=== PATIENT | female | born 1955 | race Caucasian/White ===

== ENCOUNTER → 2019-07-04 10:01 | Outpatient (CLI) | payer OTHER, SELFPAY ==
--- NOTE | ~2019-07-04 | CT_ITS ---
EXAMINATION: CT pelvis w con DATE: 07/04/2019 11:02 INDICATION: Pilonidal cyst without abscess. TECHNIQUE: High resolution computed tomography (CT) of the pelvis was performed with 100 mL Omnipaque -350 intravenous contrast. Additional sagittal and coronal reconstructions were performed. Automated exposure control and iterative reconstruction technique were employed. The dose-length product was 67 0.67 mGy-cm. COMPARISON: None FINDINGS: The visualized portions of the bowels are normal with no wall thickening or obstruction. The appendix is not visualized. No pericecal inflammatory change to suggest acute appendicitis. Bladder, uterus a nd bilateral adnexa are unremarkable. Visualized lower pole of the left kidney is unremarkable. There is calcified atherosclerosis of the aorta and bilateral iliac arteries. No free intraperitoneal gas or fluid. No pathologically enlarged abdominal or pelvic lymphadenopathy. No abnormal masses or fluid collections identified in the immediate vicinity sacrum or coccyx. Mild degenerative skeletal change s in the lumbar spine, bilateral hip and sacroiliac joints. IMPRESSION: 1. Unremarkable study with no pilonidal cyst or abnormal masses in the region of the sacrum or coccyx . Reviewed, dictated and finalized at location A. AND CROWN PRESSER IMPRESSION: 1. Unremarkable study with no pilonidal cyst or abnormal masses in the region o f the sacrum or coccyx.
[2019-07-04 10:43] LABS: Blood Urea Nitrogen 18 mg/dL (8-26); Estimated Glomerular Filt Rate > 60
== END ==
PROVIDERS: PCP Family Medicine; Visit Provider Family Medicine
DX: L05.91 Pilonidal cyst without abscess (principal)
CPT/HCPCS: 72193; Q9967

== ENCOUNTER 2019-12-13 09:07 | Outpatient (CLI) | payer OTHER, SELFPAY ==
--- NOTE | ~2019-12-13 | DEXA_ITS ---
Bone Density Report Name: Stacy Byrd Age: 64 Sex: Female Ethnicity: White Date of : 1955 Indication: postmenopausal; height loss; prior fracture; cancer; Referring Provider: Aleyda Main Study: Bone densitometry was performed. Exam Date: December 13, 2019 Accession number: [id number] Bone Density: Region BMD T-score Z-score Classification AP Spine (L1, L2, L3) 0.880 -1.3 0.3 Osteopenia Femoral Neck (Left) 0.694 -1.4 0.0 Osteopenia Total Hip (Left) 0.943 0.0 1.1 Normal Total Hip Bilateral Avg 0.930 -0.1 1.0 Normal Femoral Neck (Right) 0.639 -1.9 -0.5 Osteopenia Total Hip (Right) 0.915 -0.2 0.9 Normal World Health Organization criteria for BMD impression classify patients as: Normal (T-score at or above -1.0), Osteopenia (T-score between -1.0 and -2.5), or Osteoporosis (T-score at or below -2.5). 10-year Fracture Risk(1): Major Osteoporotic Fracture 15% Hip Fracture 1.8% Reported Risk Factors: [place] (), Neck BMD=0.639, BMI=33.1, previous fracture (1) FRAX(R) Version 3.08. Fracture probability calculated for an untreated patient. Fracture probability may be lower if the patient has received treatment. Previous Exams: Region Exam Age BMD T-score BMD Change BMD Change Date g/cm2 vs Baseline vs Previous AP Spine(L1, L2, L3) 12/13/2019 64 0.880 -1.3 -0.044(-4.8%)# -0.088(-9.1%)# 01/26/2016 60 0.969 -0.4 0.044(4.7%)* 0.077(8.6%)* 08/13/2013 58 0.891 -1.2 -0.033(-3.6%)* -0.033(-3.6%)* 07/19/2011 56 0.925 -0.8 Total Hip(Left) 12/13/2019 64 0.943 0.0 -0.020(-2.1%)# -0.006(-0.6%)# 01/26/2016 60 0.948 0.1 -0.015(-1.5%) 0.011(1.1%) 08/13/2013 58 0.938 0.0 -0.025(-2.6%) -0.025(-2.6%) 07/19/2011 56 0.963 0.2 Total Hip(Right) 12/13/2019 64 0.915 -0.2 -0.005(-0.5%)# 0.014(1.5%)# 01/26/2016 60 0.901 -0.3 -0.019(-2.0%) 0.015(1.7%) 08/13/2013 58 0.886 -0.5 -0.034(-3.7%)* -0.034(-3.7%)* 07/19/2011 56 0.920 -0.2 *Denotes significance at 95% confidence level, LSC for AP Spine = 0.022 g/cm2, LSC for Total Hip = 0.027 g/cm2 Clinical Information Provided by Patient: Has had a low trauma fracture Has the following medical conditions: Cancer Patient maximum height was 62.5 Menopause Age: 51 No regular weight bearing exercise Does not regularly consume dairy products Onset of menses at age 16 Number of children 2 Impression: The patient has
--- NOTE | ~2019-12-13 | MM_ITS ---
EXAMINATION: MM screening [facility] BI w marie HISTORY: Screening TECHNIQUE: Craniocaudal and mediolateral oblique 3-D tomosynthesis images were obtained and synthetic 2-D images were generated. CAD analysis was submitted and interpreted. COMPARISON: Comparison to multiple prior studies sequentially, with oldest reviewed study dated 09/2013. BREAST PARENCHYMAL COMPOSITION: There are scattered areas of fibroglandular density. FINDINGS: There is no evidence of suspicious mass, calcification, or architectural distortion to sugg est malignancy in either breast. There has been no suspicious interval change. IMPRESSION: 1. No mammographic evidence of malignancy. 2. Recommend routine screening mammography in one year. BI-RADS Category 1: Negative Reviewed, dictated and finalized at location A.
== END 2019-12-13 09:08 | disposition home or self-care (01) ==
LOC: ANHIMG 09:12
PROVIDERS: PCP Family Medicine; Visit Provider Obstetrics & Gynecology Gynecology
DX: Z12.31 Encounter for screening mammogram for malignant neoplasm of breast (principal); Z78.0 Asymptomatic menopausal state; M85.89 Other specified disorders of bone density and structure, multiple sites
CPT/HCPCS: 77063; 77067; 77080

== ENCOUNTER 2020-06-30 10:13 | Emergency (ER) | payer OTHER, SELFPAY ==
--- NOTE | ~2020-06-30 | XR_ITS ---
EXAMINATION: XR elbow RT min 3V INDICATION: Right elbow pain TECHNIQUE: Four views of the right elbow are obtained. COMPARISON: None available FINDINGS: An elbow joint effusion is present. There appears to be a nondisplaced fracture involving t he articular surface of the radial head. Bone alignment is normal. The remaining osseous structures a re unremarkable. IMPRESSION: 1. Elbow joint effusion with likely nondisplaced radial head fracture. Reviewed, dictated and finalized at location A. ICAL THERAPIST ASSISTANT
[2020-06-30 10:22] VITALS: BP 174/92; PULSE 94; RESP 20; TEMP 36.2; O2SAT 98
--- NOTE | 2020-06-30 10:37 | ED.UPPEXIN ---
HPI - Extremity Injury (Upper) General Chief Complaint: Extremity Injury, Upper Stated Complaint: rt elbow Source: patient and RN notes reviewed Limitations: no limitations History of Present Illness HPI narrative: The left handed patient-- on several meds including for IRDM, A. fib--, presents with elbow pain. Patient states she slipped and fell in inclement weather yesterday striking her left elbow. It is mild pain is worse with motion, better at rest, located somewhat radially. No bleeding, deformity, shoulder or wrist pain. Screening vitals a is remarkable for elevated blood pressure, and she comments she did not take her meds this morning Related Data Home Medications Medication Instructions Recorded Confirmed aspirin 81 mg tablet,delayed 81 mg PO DAILY 05/06/19 06/30/20 release metoprolol tartrate 50 mg tablet 100 mg PO Q12H 05/06/19 06/30/20 rivaroxaban 20 mg tablet 20 mg PO DAILY 05/06/19 06/30/20 atorvastatin 80 mg PO DAILY 06/30/20 06/30/20 calcium carbonate [Calcium 600] 600 mg PO DAILY 06/30/20 06/30/20 cholecalciferol (vitamin D3) 50 mcg PO DAILY 06/30/20 06/30/20 [Vitamin D3] Allergies Allergy/AdvReac Type Severity Reaction Status Date / Time No Known Allergies Allergy Verified 06/30/20 10:19 Review of Systems Review of Systems: Narrative: General/Constitutional: No weight loss,fever Eyes: N0: Redness,discharge Ears/Nose/Throat: No: Epistaxis,ear discharge Respiratory: Denies: Hemoptysis Gastrointestinal: No Vomiting, Bleeding-rectal Skin: No Lumps, eruption Neurologic: No Focal Weakness,Sz Hematologic: Denies: Petechiae/Purpura Psychiatric: No: Suicida ideationl All Other Systems: Reviewed and Negative [facility] Past Medical History Medical History (Updated 06/30/20 @ 10:44 by Cody Mcmahan MD) Atrial flutter Breast cancer CAD (coronary artery disease) Type 2 diabetes mellitus with hyperglycemia Surgical History Surgical History History of loop recorder History of lumpectomy Hx of CABG Family History Family History Sibling Diabetes mellitus Family history of coronary artery disease Family history of premature coronary heart disease Father Carcinoma of colon Family history of smoking Mother Family history of lung cancer Family history of smoking Other Family history of cardiovascular disease Family history of glaucoma Family history of obesity Hypertension Social History Social History Smoking status: Former smoker Smoking end date: 05/11/96 Alcohol intake: never Comments At time of signature, agree with nursing past medical, surgical, social and family history. There is no relevant family history pertinent to the presenting complaint Exam Narrative: Exam Narrative: General Appearance: Well appearing, , Conjunctiva clear Mouth/Throat: Normal appearing, Normal lips: Supple Respiratory: Airway patent, No respiratory distress MS elbow: Normal strength (mostly intact, limited flexion/extension by pain), Tenderness (radially, with mild decreased ROM), No swelling (radially), Skin: Warm, Dry, Normal color Neurological: A&O x3, d, Normal affect Course Vital Signs Vital signs: Vital Signs Temperature 97.2 F L 06/30/20 10:22 Pulse Rate 94 06/30/20 10:22 Respiratory Rate 20 06/30/20 10:22 Blood Pressure 174/92 H 06/30/20 10:22 Pulse Oximetry 98 06/30/20 10:22 Temperature 97.2 F L 06/30/20 10:22 Pulse Rate 94 06/30/20 10:22 Respiratory Rate 20 06/30/20 10:22 Blood Pressure 174/92 H 06/30/20 10:22 Pulse Oximetry 98 06/30/20 10:22 Discharge Plan Discharge Clinical Impression: Fracture of radial head, right, closed Qualifiers: Encounter type: initial encounter Fracture alignment: nondisplaced Qualified Code(s): S52.124A - Nondisplaced
== END 2020-06-30 11:01 | disposition home or self-care (01) ==
PROVIDERS: Emergency Provider Emergency Medicine; PCP Family Medicine
DX: S52.124A Nondisplaced fracture of head of right radius, initial encounter for closed fracture (principal); W01.0XXA Fall on same level from slipping, tripping and stumbling without subsequent striking against object, initial encounter; I48.91 Unspecified atrial fibrillation; I25.10 Atherosclerotic heart disease of native coronary artery without angina pectoris; E11.9 Type 2 diabetes mellitus without complications; Z85.3 Personal history of malignant neoplasm of breast; Z87.891 Personal history of nicotine dependence; Z79.82 Long term (current) use of aspirin
CPT/HCPCS: 73080; 99213; G0463

== ENCOUNTER 2020-12-25 14:24 | Outpatient (CLI) | payer OTHER, SELFPAY ==
--- NOTE | ~2020-12-25 | MM_ITS ---
EXAMINATION: MM screening [facility] BI w marie HISTORY: Screening mammogram TECHNIQUE: Craniocaudal and mediolateral oblique 3-D tomosynthesis images were obtained and synthetic 2-D images were generated. CAD analysis was submitted and interpreted. COMPARISON: 12/13/2019, 11/06/2018, 11/02/2017 BREAST PARENCHYMAL COMPOSITION: There are scattered areas of fibroglandular density. FINDINGS: Lumpectomy changes are present in the upper outer quadrant of the left breast. There is no evidence of suspicious mass, calcification, or architectural distortion to suggest malignancy in eith er breast. There has been no suspicious interval change. IMPRESSION: 1. No mammographic evidence of malignancy. 2. Recommend routine screening mammography in one year. BI-RADS Category 2: Benign finding(s). Reviewed, dictated and finalized at location A.
== END 2020-12-25 14:25 | disposition home or self-care (01) ==
LOC: ANHIMG 14:28
PROVIDERS: PCP Physician Assistant; Visit Provider Obstetrics & Gynecology Gynecology
DX: Z12.31 Encounter for screening mammogram for malignant neoplasm of breast (principal)
CPT/HCPCS: 77063; 77067

== ENCOUNTER 2021-09-11 18:41 | Inpatient (IN) | payer OTHER, SELFPAY ==
--- NOTE | ~2021-09-11 | XR_ITS ---
EXAMINATION: XR chest 2V Exam Date/Time: 09/11/2021 19:05 CDT CLINICAL HISTORY: CP Comparison: None available. RESULT: Lines, tubes, and devices: Loop recorder. Left breast and mediastinal surgical clips. Intact sternot delia wires. Coronary stents. Cervical fusion hardware. Lungs and pleura: Clear. Cardiomediastinal silhouette: Stable cardiomediastinal silhouette. Other: No acute osseous or upper abdominal finding. IMPRESSION: No acute cardiopulmonary process Reviewed, dictated and finalized at location K.
--- NOTE | 2021-09-11 18:47 | ECG_ITS ---
Measurements Intervals [place] Rate: 108 P: 247 AK: 121 QRS: 107 QRSD: 123 T: -31 QT: 351 QTc: 471 Interpretive Statements ATRIAL TACHYCARDIA RIGHT AXIS DEVIATION INCOMPLETE RIGHT BUNDLE BRANCH BLOCK BORDERLINE ST-T WAVE ABNORMALITY- ANTEROLAT/INF LEADS ABNORMAL ECG Electronically Signed On 09-11-2021 19:23:34 CDT by Seth Rowland D.O.
[2021-09-11 19:29] VITALS: BP 185/85; PULSE 106; RESP 18; TEMP 36.6; O2SAT 98
[2021-09-11 20:12] LABS: Basophils Absolute Auto 0.1 K/mm3 (0.0-0.1); Basophils Percent Auto 0.8 % (0.2-1.2); Eosinophils Absolute Auto 0.1 K/mm3 (0-0.3); Eosinophils Percent Auto 1.2 % (0-4.4); Hematocrit 43.4 % (37.0-47.0); Hemoglobin 13.8 g/dL (12.0-15.0); Immature Granulocyte Absolute 0.05 K/mm3 (0.00-0.031); Immature Granulocyte Percent A 0.5 % (0-0.5); Lymphocytes Absolute Auto 2.29 K/mm3 (0.9-3.2); Lymphocytes Percent Auto 23.6 % (18.3-44.2); Mean Corpuscular HGB Conc 31.8 g/dl (32-36); Mean Corpuscular Hemoglobin 27.3 pg (26-34); Mean Corpuscular Volume 85.9 fl (80-100); Mean Platelet Volume 12.5 fl (7.4-10.4); Monocytes Absolute Auto 0.9 K/mm3 (0.1-0.6); Monocytes Percent Auto 9.2 % (2.6-8.5); Neutrophils Absolute Auto 6.3 K/mm3 (1.3-6.7); Neutrophils Percent Auto 64.7 % (45.5-73.1); Platelet Count Result 225 k/mm3 (150-375); Red Blood Count 5.05 M/mm3 (4.2-5.4); Red Cell Distribution Width 14.5 % (11.5-14.5); White Blood Count 9.7 K/mm3 (4.5-10.0)
[2021-09-11 20:24] LABS: INR 2.3; Prothrombin Time 24.5 Seconds (11.1-14.7)
[2021-09-11 20:25] LABS: Partial Thromboplastin Time 47.2 SECONDS (22.3-36.8)
[2021-09-11 20:28] LABS: Alanine Aminotransferase 19 U/L (4-35); Albumin Level 4.8 g/dL (3.5-5.1); Alkaline Phosphatase 113 U/L (38-126); Anion Gap 12 mmol/L (8-16); Aspartate Amino Transferase 25 U/L (14-36); Bilirubin,Total 0.7 mg/dL (0.2-1.3); Blood Urea Nitrogen 17 mg/dL (7-17); Calcium 11.2 mg/dL (8.4-10.2); Carbon Dioxide 29 mmol/L (22-30); Chloride 98 mmol/L (98-107); Estimated CRCL calculation 55 ml/min; Estimated Glomerular Filt Rate > 60; Glucose 100 mg/dL (65-110); Lipase 125 U/L (23-300); Sodium 139 mmol/L (137-145)
[2021-09-11 20:40] LABS: Troponin I < 0.012 ng/mL (0.000-0.034)
[2021-09-11 22:31] LABS: Glucose Point of Care 107 mg/dl (65-105)
--- NOTE | 2021-09-11 22:47 | ED.CHESTPAIN ---
HPI - Chest Pain General Chief Complaint: Chest Pain Stated Complaint: chest tightness Time Seen by Provider: 09/11/21 22:47 Source: patient and family Mode of arrival: ambulatory Limitations: no limitations History of Present Illness HPI narrative: Patient is a 66-year-old female with a history of hypertension, coronary artery disease, CABG, presenting to the emergency department for evaluation of chest pressure. Patient endorses onset of chest pressure this evening, pain is been present greater than 3 hours at the time of evaluation. Patient denies any radiation of the pain to the jaw, neck, shoulder, back, denies any ripping or tearing sensation to the flanks. Patient denies any nausea, vomiting, diaphoresis or shortness of breath. She denies palpitations. Patient states that the pain began while she was sitting at home, denies any significant exertional activity. Patient denies leg swelling or calf pain. No history of coagulopathy. Denies recent surgery or immobility. No recent long car or air travel. She has been compliant with her medications. Patient's sponge packer is Dr. Katz. Related Data Home Medications Medication Instructions Recorded Confirmed aspirin 81 mg tablet,delayed 81 mg PO DAILY 05/06/19 08/12/21 release metoprolol tartrate 50 mg tablet 100 mg PO Q12H 05/06/19 08/12/21 rivaroxaban 20 mg tablet 20 mg PO DAILY 05/06/19 08/12/21 calcium carbonate [Calcium 600] 600 mg PO DAILY 06/30/20 08/12/21 cholecalciferol (vitamin D3) 50 mcg PO DAILY 06/30/20 08/12/21 [Vitamin D3] atorvastatin 40 mg tablet 40 mg PO DAILY 08/16/20 08/12/21 insulin glargine 100 unit/mL (3 20 unit SUB-Q DAILY ml 08/12/21 08/12/21 mL) subcutaneous pen Allergies Allergy/AdvReac Type Severity Reaction Status Date / Time No Known Allergies Allergy Verified 09/11/21 19:34 Review of Systems Review of Systems: CONSTITUTIONAL: Denies fever, chills, or sweats. EYES: Denies visual changes, redness, or discharge. ENT: Denies rhinorrhea, congestion, sore throat, or otalgia. CARDIOVASCULAR: Reports chest pressure without palpitations or edema RESPIRATORY: Denies cough or dyspnea. GASTROINTESTINAL: Denies abdominal pain, nausea, vomiting, or diarrhea. GENITOURINARY: Denies dysuria or hematuria. SKIN: Denies rash or itching. MUSCULOSKELETAL: Denies back pain, joint pain, or myalgia. NEUROLOGIC: Denies headache, numbness, or weakness. [facility] Past Medical History Medical History A-fib Atrial flutter Breast cancer CAD (coronary artery disease) High cholesterol MELANIE (obstructive sleep apnea) Type 2 diabetes mellitus with hyperglycemia Wears glasses Surgical History Surgical History History of 1978 and 1981 History of cholecystectomy History of hip surgery Dr. Lee History of loop recorder History of lumpectomy Hx of CABG Family History Family History Sibling Diabetes mellitus Family history of coronary artery disease Family history of premature coronary heart disease Father Carcinoma of colon Family history of smoking Mother Family history of lung cancer Family history of smoking Other Family history of cardiovascular disease Family history of glaucoma Family history of obesity Heart disease High cholesterol Hypertension Social History Social History Smoking packs per day: 1.5 Smoking cigarettes per day: 30.0 Years smoked: 23 Smoking pack-years: 34.50 Smoking status: Former smoker Tobacco type: cigarettes Smoking end date: 05/11/96 Alcohol intake: never Substance use: never Substance use type: does not use Gender identity (if verbalized by the patient): Female Exam Narrative: GENERAL: Awake, alert, conversant HEAD: Normocephalic, atraumat
[2021-09-11 23:01] VITALS: BP 164/85; PULSE 105; RESP 16; O2SAT 97
[2021-09-11] MEDS: ASPIRIN 81 MG CHEWABLE TABLET 324 MG PO (23:01)
[2021-09-11] MEDS: NITROGLYCERIN SL 0.4 MG TABLET (23:04)
[2021-09-11 23:24] LABS: Troponin I < 0.012 ng/mL (0.000-0.034)
[2021-09-11 23:31] VITALS: BP 153/79; PULSE 106; RESP 13; O2SAT 96
[2021-09-11 23:32] VITALS: PULSE 106; RESP 22
[2021-09-12] VITALS (18 sets, daily range): BP systolic 133–157; BP diastolic 63–86; PULSE 80–106; RESP 13–21; TEMP 36.4–36.9; O2SAT 95–99; BMI 32.5
--- NOTE | 2021-09-12 | ECHO_ITS ---
Patient Info Name: Stacy Byrd Age: 66 years : 1955 Gender: Female Ht: 62 in Wt: 177 lbs BSA: 1.91 m2 HR: 106 bpm BP: 155 / 74 mmHg Heart Rhythm: Sinus Rhythm Technical Quality: Fair Exam Date: 09/12/2021 11:12 AM Exam Location: [facility] Patient Status: Inpatient Admit Date: 09/11/2021 Staff Ordering Physician: Cody Charlton MD Warp Worker: Kyra Cardoso RDCS Attending Provider: Master Kaur DO Referring Physician: Zoltan KWON; Exam Type: CA echo doppler color flow Study Info Indications - cp, cad Complete two-dimensional, color flow and Doppler transthoracic echocardiogram is performed. Strain analysis performed. Summary 1. Complete two-dimensional, color flow and Doppler transthoracic echocardiogram is performed. 2. Strain analysis performed. 3. Left ventricular chamber dimension is normal. 4. Left ventricular systolic function is normal, estimated at 65-70%. 5. There is moderately increased left ventricular wall thickness. 6. The left ventricular diastolic function is grade I diastolic dysfunction. 7. Global longitudinal strain is abnormal at -13 %. 8. Left atrial chamber dimension is moderately enlarged. 9. There is mild mitral valve regurgitation. 10. There is mild tricuspid valve regurgitation. 11. There is mild pulmonic regurgitation. Left Ventricle Left ventricular chamber dimension is normal. Left ventricular systolic function is normal, estimated at 65-70%. There is moderately increased left ventricular wall thickness. The left ventricular diastolic function is grade I diastolic dysfunction. Global longitudinal strain is abnormal at -13 %. Right Ventricle Right ventricular chamber dimension is normal. Right ventricular systolic function is normal. Left Atria Left atrial chamber dimension is moderately enlarged. Right Atria Right atrial chamber dimension is normal. Atrial Septum Intact interatrial septum visualized by color flow imaging. Aortic Valve The aortic valve is trileaflet. There is mild aortic valve sclerosis. There is no aortic valve stenosis. There is trace aortic valve regurgitation. Pulmonic Valve The pulmonic valve is normal. There is no pulmonic valve stenosis. There is mild pulmonic regurgitation. Mitral Valve The mitral valve has normal leaflets. There is no mitral valve stenosis. There is mild mitral valve regurgitation. Tricuspid Valve The tricuspid valve leaflets are normal. There is no significant tricuspid valve stenosis. There is mild tricuspid valve regurgitation. Pericardium/Pleural The pericardium appears normal. There is no pericardial effusion. Inferior Vena Cava Normal inferior vena cava with <50% collapse upon inspiration consistent with elevated right atrial pressure, 10 mmHg. Aorta The aortic root size at the sinus of Valsalva is normal. Left Ventricular Outflow Tract Name Value Normal LVOT 2D LVOT Diameter 2.0 cm LVOT Doppler LVOT Peak Gradient 3 mmHg LVOT Mean Gradient 1 mmHg LVOT VTI
[2021-09-12] MEDS: MORPHINE SULFATE (*CRX) 4 MG/ML INJ IV PUSH (00:30)
[2021-09-12] MEDS: SODIUM CHLORIDE 0.9% IV 1,000 ML 999 ML IV CONT (00:30)
[2021-09-12 01:17] LABS: SARS-CoV-2 RNA PCR Negative
--- NOTE | 2021-09-12 03:20 | PC.NURSE ---
This patient, Stacy Byrd, was admitted to Intensive Care Unit-10. Patient/family oriented to hospital policies and general routines including ID bracelet, bed and alarms, visiting hours, pain management, procedures, bathroom and other care routines, personal items, smoking policy, room service/diet, and visiting hours. Information on how to activate the Rapid Response Team has been discussed. Patient/Family are encouraged to report perceived risks to care and to ask questions if they do not understand what they are told or what they should do.
[2021-09-12 03:38] LABS: Troponin I < 0.012 ng/mL (0.000-0.034)
[2021-09-12 04:28] LABS: Anion Gap 10 mmol/L (8-16); Blood Urea Nitrogen 15 mg/dL (7-17); Calcium 9.6 mg/dL (8.4-10.2); Carbon Dioxide 25 mmol/L (22-30); Chloride 104 mmol/L (98-107); Estimated CRCL calculation 55 ml/min; Estimated Glomerular Filt Rate > 60; Glucose 96 mg/dL (65-110); Potassium 3.8 mmol/L (3.4-5.0); Sodium 139 mmol/L (137-145)
--- NOTE | 2021-09-12 07:42 | PM.IMHP ---
H&P: HPI History of Present Illness Date/Time: 09/12/21 07:42 Chief Complaint: Chest pain Narrative: 66yo female with hx of CAD, AFib and DM here for chest pain. Patient has extensive coronary history. She had her 1st heart catheterization and stent at age 41. She has had total 4 stents placed she believes. She ultimately had CABG x3 vessel in 2012. No heart catheterization or stress test since 2012. She also has atrial fibrillation diagnosed about 4 years ago. She underwent ablation x2 that was successful. She had a loop recorder placed before years ago and as far she is aware is that she is maintaining normal sinus rhythm. She remains on Xarelto. Patient was in normal state health until September 08 when about an hour after eating dinner of meat potatoes, she felt chest pain as ?someone sitting on my chest?. No GERD symptoms. No nausea or vomiting. No diaphoresis. No radiation to the pain. No shortness of breath. No abdominal pain. She is status post cholecystectomy. No changes of symptoms after belching. She did have palpitations that she describes is that she could feel the heart beating. She states the symptom was very similar to the times she has had chest pain requiring intervention. The next day her symptoms were better but persistent and her symptoms completely resolved on 09/10. Yesterday after fishing she returned home and her symptoms recurred. She again denies any nausea, vomiting, diaphoresis or shortness of breath. She denies any calf pain, pedal edema, PND, orthopnea, back pain, abdominal pain, dysuria or hematuria, diarrhea, vision changes, hearing changes, odynophagia, dysphagia. She does have chronic tinnitus and also complains of left foot sharp tingling pain for the past few months. She does have diabetes since 2005 and last A1c was 6.4. She checks her glucose 3 times a week confusion did runs less than 150. Because of this reason she presented to the emergency room for evaluation. She does follow with her ship's carpenter, Dr. Fontana. Patient presented emergency room for evaluation. Blood pressure was 185/85 with a pulse 106. EKG showed atrial tachycardia rate of 108, incomplete right bundle-branch block and ST wave changes in anterior and inferior leads. Troponin was negative x3. COVID was negative. Lipase was normal. LFTs normal except for total protein 9. Calcium was 11.2 but she does take calcium and vitamin-D. INR 2.3. CBC normal. Chest x-ray is clear. She was given aspirin, nitroglycerin and morphine. She was admitted for further care. Chest pain has resolved. Review of Systems Review of Systems: All systems reviewed & are unremarkable except as noted in HPI and below [facility] Past Medical History Medical History (Updated 09/12/21 @ 10:28 by Cody Charlton MD) A-fib Atrial flutter Breast cancer Status post lumpectomy with chemotherapy and radiation. She has yearly mammograms now. CAD (coronary artery disease) Chronic anticoagulation High cholesterol MELANIE (obstructive sleep apnea) Compliant with CPAP most evenings. Type 2 diabetes mellitus with hyperglycemia Wears glasses Surgical History Surgical History History of 1978 and 1981 History of carpal tunnel surgery History of cholecystectomy History of foot surgery History of hip surgery Dr. Lee History of knee surgery History of loop recorder History of lumpectomy History of shoulder surgery Hx of CABG Family History Family History Sibling Diabetes mellitus Family history of coronary artery disease Family history of premature coronary heart disease Father Carcinoma of colon Family history of smoking Mother Family history of lung cancer Family history of smoking Other Family history of cardiovascular disease Family history of glaucoma Family history of obesity Heart disease High choles
[2021-09-12] MEDS: DEXTROSE 5% 1,000 ML 1,000 ML 70 ML IVPB (07:56)
[2021-09-12 07:57] LABS: Glucose Point of Care 86 mg/dl (65-105)
--- NOTE | 2021-09-12 10:22 | PM.CNCAR ---
Assessment and Plan Assessment and plan (1) Chest pain: Code(s): R07.9 - Chest pain, unspecified Status: Acute Assessment and Plan: Her chest pain is somewhat atypical but she admits that his exactly the symptoms she had prior to her previous stents and bypass surgery. Therefore, given the accelerating nature of her symptoms, unstable angina is likely. She has been on Xarelto and therefore catheterization will not be performed today. I did talk about risks benefits alternatives of stress testing versus coronary and bypass graft angiography and at this point will proceed with cardiac catheterization to define her anatomy definitively. Again this is reasonable given the fact she has had symptoms of her like those she had prior to her previous interventions. Will keep NPO after midnight. Nitroglycerin p.r.n. for chest pain. Her EKG is also abnormal for anterior ischemia. Continue aspirin, statin, metoprolol, lisinopril. Will give 1 dose of enoxaparin 1 milligram/kilogram subQ x1 now both because of her unstable angina as well as atrial fibrillation history. 2D echocardiogram with Doppler will be ordered and reviewed also. (2) Coronary artery disease: Qualifiers: Coronary Disease-Associated Artery/Lesion type: [place] artery [place] vs. transplanted heart: [place] heart Associated angina: without angina Qualified Code(s): I25.10 - Atherosclerotic heart disease of [place] coronary artery without angina pectoris Code(s): I25.10 - Atherosclerotic heart disease of [place] coronary artery without angina pectoris Status: Acute Assessment and Plan: As detailed above. History of 3 vessel CABG in 2013. (3) History of atrial fibrillation: Code(s): Z86.79 - Personal history of other diseases of the circulatory system Status: Acute Assessment and Plan: Status post ablation x2. Holding Xarelto for now (4) Hyperlipidemia: Qualifiers: Hyperlipidemia type: mixed hyperlipidemia Qualified Code(s): E78.2 - Mixed hyperlipidemia Code(s): E78.5 - Hyperlipidemia, unspecified Status: Acute Assessment and Plan: Continue statin (5) GERD (gastroesophageal reflux disease): Qualifiers: Esophagitis presence: esophagitis presence not specified Qualified Code(s): K21.9 - Gastro-esophageal reflux disease without esophagitis Code(s): K21.9 - Gastro-esophageal reflux disease without esophagitis Status: Acute (6) Hypertension associated with diabetes: Code(s): E11.59 - Type 2 diabetes mellitus with other circulatory complications; I15.2 - Hypertension secondary to endocrine disorders Status: Acute Assessment and Plan: Continue lisinopril, metoprolol. 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 Her last dose of Xarelto was Thursday morning History of Present Illness History of Present Illness Consult date/time: 09/12/21 10:22 Requesting physician: Priya Ervin MD Consult reason: chest pain Reason For Visit: Chest Pain Narrative: Date of service 09/12/2021 Reason consultation: Chest pain, CAD Requesting provider: Dr. Ervin History patient is a 66-year-old female patient of Dr. Fontana who has a history of CAD. His stent placed at the age of 41 and has had multiple stents and ultimately a coronary bypass graft in 2012. Shows has a history of atrial fibrillation and has undergone 2 ablations. She has a loop recorder in place which is followed by Dr. Donahue. She has been doing relatively well recently until 4 days ago. But on our after eating supper she started developed some ?indigestion ?. She does have history of reflux but states that this did feel different than her reflux but still thought it was possibly indigestion. It did feel as if someone was sitting on her chest th
[2021-09-12] MEDS: lisinopriL 20 MG TABLET 40 MG PO (10:30)
[2021-09-12] MEDS: ATORVASTATIN 40 MG TABLET 80 MG PO (10:30)
[2021-09-12] MEDS: PANTOPRAZOLE 40 MG TABLET PO (10:30)
[2021-09-12] MEDS: ASPIRIN 81 MG CHEWABLE TABLET PO (10:30)
[2021-09-12] MEDS: METOPROLOL TARTRATE 50 MG TAB PO ×2 (10:30→20:15)
[2021-09-12] MEDS: ENOXAPARIN 80 MG/0.8 ML SYRINGE SUB-Q (12:21)
[2021-09-12 12:22] LABS: Glucose Point of Care 124 mg/dl (65-105)
[2021-09-12 16:09] LABS: Glucose Point of Care 217 mg/dl (65-105)
[2021-09-12] MEDS: INSULIN ASPART (*BKC) 100 UNITS/ML SUB-Q (17:50)
[2021-09-12 20:14] LABS: Glucose Point of Care 224 mg/dl (65-105)
[2021-09-12] MEDS: INSULIN GLARGINE (*BKC) 100 UNITS/ML 10 UNITS SUB-Q (20:15)
[2021-09-13] VITALS (28 sets, daily range): BP systolic 112–159; BP diastolic 51–87; PULSE 81–101; RESP 12–28; TEMP 36.5–37.1; O2SAT 90–99
[2021-09-13 04:58] LABS: Hemoglobin A1C 6.8 % (<5.7)
[2021-09-13 08:25] LABS: Glucose Point of Care 168 mg/dl (65-105)
[2021-09-13] MEDS: PANTOPRAZOLE 40 MG TABLET PO (08:25)
[2021-09-13] MEDS: CYANOCOBALAMIN 1,000 MCG TABLET 1000 MCG PO (08:26)
[2021-09-13] MEDS: lisinopriL 20 MG TABLET 40 MG PO (08:26)
[2021-09-13] MEDS: ATORVASTATIN 40 MG TABLET 80 MG PO (08:26)
[2021-09-13] MEDS: METOPROLOL TARTRATE 50 MG TAB PO ×2 (08:26→20:58)
[2021-09-13] MEDS: ASPIRIN 81 MG CHEWABLE TABLET PO (08:26)
[2021-09-13 08:51] LABS: Alanine Aminotransferase 18 U/L (4-35); Albumin Level 4.1 g/dL (3.5-5.1); Alkaline Phosphatase 87 U/L (38-126); Anion Gap 11 mmol/L (8-16); Aspartate Amino Transferase 22 U/L (14-36); Bilirubin,Total 0.3 mg/dL (0.2-1.3); Blood Urea Nitrogen 16 mg/dL (7-17); Calcium 8.8 mg/dL (8.4-10.2); Carbon Dioxide 24 mmol/L (22-30); Chloride 104 mmol/L (98-107); Estimated CRCL calculation 55 ml/min; Estimated Glomerular Filt Rate > 60; Glucose 160 mg/dL (65-110); Magnesium 1.5 mg/dL (1.6-2.3); Potassium 4.2 mmol/L (3.4-5.0); Sodium 139 mmol/L (137-145)
[2021-09-13 09:03] LABS: Parathyroid Intact 37.3 pg/mL (7.5-53.5)
--- NOTE | 2021-09-13 09:32 | PC.NURSE ---
Report received by DARLENE Tinoco with the ICU department at 0924. All questions answered and plan of care reviewed. Patient to go to IMU room 202.
--- NOTE | 2021-09-13 09:40 | PC.NURSE ---
This patient, Stacy Byrd, was transferred to [facility] on 09/13/21 at 0940. Personal belongings sent with patient. Report given to Lindsay COLON. Appropriate documentation sent with patient.
--- NOTE | 2021-09-13 10:02 | PC.NURSE ---
Patient arrived to IMU department at 0940. Patient oriented to room policies and procedures. Call light within reach and safety assessment completed. This nurse to resume care.
--- NOTE | 2021-09-13 11:28 | ECG_ITS ---
Measurements Intervals [place] Rate: 96 P: 256 CT: 129 QRS: 101 QRSD: 106 T: -6 QT: 360 QTc: 457 Interpretive Statements ECTOPIC ATRIAL RHYTHM RIGHT AXIS DEVIATION INCOMPLETE RIGHT BUNDLE BRANCH BLOCK BORDERLINE ST-T WAVE ABNORMALITY- ANTEROLAT/INF LEADS ABNORMAL ECG Electronically Signed On 09-13-2021 12:47:21 CDT by Seth Rowland D.O.
--- NOTE | 2021-09-13 11:33 | WPDCARDPROC ---
Cardiac Cath Procedure Note Date of procedure:: 09/13/21 Performing physician:: Toney Fontana MD Indication:: coronary artery disease previous surgical and percutaneous revascularizations with recurrent ischemic chest pain Brief clinical history:: this is a 66-year-old woman with longstanding coronary disease at a premature age. She has had both surgical and percutaneous revascularization all of her coronary arteries in the past. She is known to have occlusion of all of her previous coronary bypass grafts. Most recent intervention was laser angioplasty stenting of the right coronary artery. This was done at [facility] in 2017. She has done well until this admission where she has recurrent chest tightness concerning for ischemia. ECG and biomarkers are negative for ACS. In this setting a follow-up angiogram was recommended. Procedure Procedure performed:: Left ventriculogram coronary angiogram PCI(STEPHANIE) to the distal circumflex Sedation/Medication given:: fentanyl 50 mg Versed 2 mg case start time 1048 a.m. case end time 11:21 a.m. Access site:: right femoral artery Estimated blood loss:: 30-40 cc Procedure note:: patient was brought to the cardiac catheterization lab absorptive state where the right femoral triangle was prepared in the normal fashion. Anesthesia was provided with 1% lidocaine infiltrated locally. Using the modified Seldinger technique a 5 [place] sheath was placed into the femoral artery after this left heart catheterization took place I used a 5 [place] angled pigtail catheter to document left-sided hemodynamics as well as to inject LV g in the are AO projection. Following this left coronary artery was engaged and injected using the standard FL4 catheter. The right coronary was engaged and injected using a standard JR4 catheter. This any angiograms were then reviewed and PCI of the distal circumflex was recommended and carried out as detailed below. Prior to PCI the patient's 5 [place] sheath was exchanged over a guidewire for 6 [place]. She was systemically anticoagulated with a bolus and infusion of Angiomax for this intervention. She was taking aspirin chronically she received 600 mg of clopidogrel orally prior to PCI as well. Following the case the sheath was sutured into position she was taken to the holding area for post PCI recovery and sheath removal with manual compression. Procedure was well tolerated and uncomplicated. Findings:: Hemodynamics: Central aortic pressure was 140 over 70 left ventricle 1 5 end-diastolic pressure 18 there is no gradient on pullback across the aortic valve. left ventricle: The LV is normal in size all segments contract well. There is modest hypokinesis at the base of the anterior wall the remainder of the LV contracts nicely with a global ejection fraction of 65%. The left main coronary artery is medium in caliber and has mild diffuse atherosclerosis. There is no more than 40-50% left main stenosis which is unchanged from previous angiography. The left anterior descending is a small diffusely diseased artery. There is a patent stent seen in the proximal segment of the LAD. Distal to this the LAD is very small and diffusely attenuated but without significant discrete stenosis. The circumflex is a medium caliber vessel giving rise to several marginal branches. The 1st 2 of these are very small diminutive diffusely diseased vessels that are angiographically unchanged from previous exams and are not suitable for PCI as they are exceedingly small in size. Distal to these 1st 2 marginal branches there is a very old previously deployed stent in the trunk of the circumflex leading into the 3rd OM branch and prior to a posterior branch. The distal half of the stent has InStent stenosis which at the distal margin becomes significant at least 70-80% narrowing. Angiographically this is progressed from 2017 where was described as a 40% lesion. The right coronary ar
--- NOTE | 2021-09-13 12:14 | PC.NURSE ---
Card[facility] Rehab Services flyer was given to patient.
--- NOTE | 2021-09-13 14:53 | SUR.PHASEII ---
Addendum entered by Hyacinth Cordero RN 09/13/21 14:53: to danny hunt Original Note: report called to imu rn
--- NOTE | 2021-09-13 14:53 | PC.NURSE ---
Report received by DARLENE Claros with the farm laborer team at 1450. All questions answered. Patient to return to IMU room 202.
[2021-09-13] MEDS: SODIUM CHLORIDE 0.9% IV 1,000 ML 125 ML IV CONT (15:29)
--- NOTE | 2021-09-13 15:33 | PC.NURSE ---
Patient back from cardiac cath lab manager at 1521.
--- NOTE | 2021-09-13 15:45 | PM.IMPN ---
Progress Note: A&P Assessment and Plan (1) Chest pain: Code(s): R07.9 - Chest pain, unspecified Status: Acute Assessment and Plan: Patient presents with chest pain that is similar to when she has had prior coronary events. Patient has extensive coronary history and with diabetes, hypertension and hyperlipidemia. Trop negative x 3. EKG showing atrial tach, RAD, incomplete RBBB and borderline ST-T wave changes anterolateral leads. Echo showing EF 65-70%, grade 1 diastolic dysfunction and mild valvular disease. Cardiology consulted and patient underwent LHC today showing in-stent stenosis in the LCX prior to the large OM3 with PCI and STEPHANIE placement. She tolerted this well. Continue aspirin, Lipitor, Plavix and Lopressor. (2) Type 2 diabetes mellitus without complication: Qualifiers: Diabetes mellitus correction insulin use: with intermodal dispatcher use Qualified Code(s): E11.9 - Type 2 diabetes mellitus without complications; Z79.4 - [facility] (current) use of insulin Code(s): E11.9 - Type 2 diabetes mellitus without complications Status: Acute Assessment and Plan: A1c 6.8. The patient's blood glucose was reviewed on 09/13 Glucose remains well controlled. Continue AccuCheks covering with sliding scale. Hypoglycemia protocol available as needed. Resume home medications. (3) Coronary artery disease: Qualifiers: Associated angina: without angina Coronary Disease-Associated Artery/Lesion type: [place] artery [place] vs. transplanted heart: [place] heart Qualified Code(s): I25.10 - Atherosclerotic heart disease of [place] coronary artery without angina pectoris Code(s): I25.10 - Atherosclerotic heart disease of [place] coronary artery without angina pectoris Status: Acute Assessment and Plan: Patient with extensive coronary history as mentioned above. Continue medical management. (4) History of atrial fibrillation: Code(s): Z86.79 - Personal history of other diseases of the circulatory system Status: Acute Assessment and Plan: Patient with a history of atrial fibrillation status post ablation x2 that was successful. She has a loop recorder in place. Will defer to Cardiology to see if it is necessary to have this interrogated. Resume Xarelto when okay with Cardiology if appropriate (5) Primary hypertension: Code(s): I10 - Essential (primary) hypertension Status: Acute Assessment and Plan: Blood pressure well controlled. Continue current medications. Continue to monitor. (6) MELANIE (obstructive sleep apnea): Code(s): G47.33 - Obstructive sleep apnea (adult) (pediatric) Status: Inactive Assessment and Plan: Compliant at home. We have ordered PAP auto titration (7) Hypercalcemia: Code(s): E83.52 - Hypercalcemia Status: Acute Assessment and Plan: Mild hypercalcemia noted but has resolved now. [place] related to her oral calcium and VitD so these medications are on hold. iPTH normal but Calcium normal so probably not inappropriate. Follow (8) DVT prophylaxis: Code(s): Z29.9 - Encounter for prophylactic measures, unspecified Status: Acute Assessment and Plan: Xarelto on hold - resume when okay with Cardiology Subjective Date/time seen: 09/13/21 15:45 Interval history: 66yo female with hx of CAD, AFib and DM here for chest pain. Patient denies any chest pain or shortness of breath. No issues overnight. Patient was seen and examined prior to her heart catheterization Exam Narrative: AF 98.6 138/78 98 18 98% ra Gen - NARD Chest - clear to auscultation bilaterally CV - RRR S1/S2; Tele showing PACs Abd - soft. Nontender. Nondistended. Positive bowel sounds. Ext - no pedal edema. Psych - normal mood and affect. Skin - warm and dry. Objective Data Vital Signs Vital Signs: Vital Signs - 24 hr 09/12/21 16:00 09/12/21
[2021-09-13 16:55] LABS: Glucose Point of Care 132 mg/dl (65-105)
[2021-09-13] MEDS: MAGNESIUM SULF 1 GM/D5W 100 ML 1 GM/100 ML BAG IVPB (18:21)
[2021-09-13 20:39] LABS: Glucose Point of Care 254 mg/dl (65-105)
[2021-09-13] MEDS: ACETAMINOPHEN 325 MG TABLET 650 MG PO (20:58)
[2021-09-13] MEDS: INSULIN GLARGINE (*BKC) 100 UNITS/ML 20 UNITS SUB-Q (20:59)
[2021-09-14] VITALS (8 sets, daily range): BP systolic 126–144; BP diastolic 59–67; PULSE 80–108; RESP 16; TEMP 36.4–36.6; O2SAT 96–98
--- NOTE | 2021-09-14 05:11 | ECG_ITS ---
Measurements Intervals [place] Rate: 79 P: 240 CO: 142 QRS: 100 QRSD: 113 T: 13 QT: 404 QTc: 464 Interpretive Statements ECTOPIC ATRIAL RHYTHM ATRIAL PREMATURE COMPLEXES RIGHT AXIS DEVIATION INCOMPLETE RIGHT BUNDLE BRANCH BLOCK BORDERLINE ST-T WAVE ABNORMALITY- ANTEROLAT/INF LEADS ABNORMAL ECG Electronically Signed On 09-14-2021 12:37:56 CDT by Seth Rowland D.O.
[2021-09-14 05:41] LABS: Anion Gap 6 mmol/L (8-16); Blood Urea Nitrogen 13 mg/dL (7-17); Calcium 7.9 mg/dL (8.4-10.2); Carbon Dioxide 25 mmol/L (22-30); Chloride 107 mmol/L (98-107); Estimated CRCL calculation 62 ml/min; Estimated Glomerular Filt Rate > 60; Glucose 106 mg/dL (65-110); Potassium 3.6 mmol/L (3.4-5.0); Sodium 138 mmol/L (137-145)
[2021-09-14] MEDS: ASPIRIN 81 MG CHEWABLE TABLET PO (08:29)
[2021-09-14] MEDS: METOPROLOL TARTRATE 50 MG TAB PO (08:29)
[2021-09-14] MEDS: ATORVASTATIN 40 MG TABLET 80 MG PO (08:30)
[2021-09-14] MEDS: lisinopriL 20 MG TABLET 40 MG PO (08:31)
[2021-09-14] MEDS: CLOPIDOGREL BISULFATE 75 MG TABLET PO (08:31)
[2021-09-14 08:32] LABS: Glucose Point of Care 113 mg/dl (65-105)
[2021-09-14] MEDS: PANTOPRAZOLE 40 MG TABLET PO (08:32)
[2021-09-14 12:56] LABS: Glucose Point of Care 131 mg/dl (65-105)
--- NOTE | 2021-09-14 13:10 | PM.DS ---
DS: Admitting Diagnosis Discharge Date 09/14/21 Admitting Diagnosis Chest pain, unstable angina DS: Discharge Diagnosis Discharge Diagnosis (1) Coronary stent restenosis: Code(s): T82.855A - Stenosis of coronary artery stent, initial encounter Status: Acute Assessment and Plan: Distal half of stent in the circumflex leading to 3rd OM branch was 70-80% narrowing which is progression from 40% in 2017, now with new STEPHANIE to treat the stenosis DS: Summary Hospital Course Reason for hospitalization: Chest pain Hospital Course: Patient is a 66-year-old female with past medical history of CAD (status post PCI x4 (most recent [facility]), CABG x3 2012), atrial fibrillation status post ablation x2, type 2 diabetes who presents with chest pain. She underwent heart catheterization by Dr. Fontana, her insulation packer, on 09/13/2021. Left heart catheterization found diffuse three-vessel coronary artery disease, progressive stenosis of circumflex prior to the large OM3 branch which was in stent stenosis. This is progression from 40% in 2017 to 70-80% disease now. Patient is now status post PCI of InStent disease in the distal circumflex with Xience STEPHANIE. Patient will be on aspirin Plavix dual anti-platelet therapy. She is already on Lipitor 80 mg daily. She will continue her lisinopril 40 mg daily, metoprolol tartrate 50 mg q.12 hours. Of note patient has a history of atrial fibrillation. Patient has a loop recorder for last couple years which has been maintaining normal sinus rhythm. However despite not being in atrial fibrillation she has been remaining on Xarelto until now. Now that she has a new STEPHANIE, insulation packer explained to patient that instead of being on triple therapy aspirin Plavix and Xarelto which increases bleed risk, plan is to stop Xarelto. Patient will be discharged home with aspirin Plavix and follow-up with insulation packer in 2 weeks. She has been counseled on post heart catheterization recommendations including lifting restrictions and return to care plan. Patient also has type 2 diabetes A1c increased from 6.4 to 6.8 after decreasing home insulin, she will follow-up with her PCP for further management. Rx for aspirin Plavix given. At time of discharge patient's vitals are stable, labs stable, patient to for discharge home. Patient understands and agrees with plan. Status at Discharge Cognitive/behavioral status at discharge: At baseline Overall status at discharge: patient is back to baseline Time Spent with Patient Time attestation: Total time spent providing and/or coordinating discharge services:35 Time spent: Greater than 30 minutes Exam Narrative: - GENERAL: Pleasant obese woman in no acute distress - EYES: EOMI. Anicteric. - HENT: Moist mucous membranes. - LUNGS: Clear to auscultation bilaterally, no wheezing, rhonchi, or rales. - CARDIOVASCULAR: Regular rate and rhythm. No murmur. No JVD. - ABDOMEN: Soft, non-tender and non-distended. No palpable masses. - EXTREMITIES: No edema. Peripheral pulses 2+. Non-tender. - NEUROLOGIC: No focal neurological deficits. CN II-XII grossly intact. - PSYCHIATRIC: Awake, Alert and oriented x 3. Appropriate mood and affect. - SKIN: No rashes or lesions. Warm. - LYMPH: No cervical lymphadenopathy. DS: Data Data Completed and Pending Labs on day of discharge: Labs from last 24 hours 09/14/21 09/14/21 09/14/21 12:28 07:59 04:31 Sodium 138 Potassium 3.6 Chloride 107 Carbon Dioxide 25 Anion Gap 6 L BUN 13 Creatinine 0.80 Estim Creat Clear Calc 62 Estimated GFR > 60 Glucose 106 POC Capillary Glucose 131 H 113 H Calcium 7.9 L Magnesium 2.0 09/13/21 09/13/21 19:55 16:50 Sodium Potassium Chloride Carbon Dioxide Anion Gap BUN Creatinine Estim Creat Clear Calc Estimated GFR Glucose POC Capillary Glucose 254 H 132 H Calcium Magnesium Discharge Plan Discharge Attending physician on disch
--- NOTE | 2021-09-14 14:19 | PC.NURSE ---
09/14/21 13:35 Patient discharged to home. Education was provided on post cardiac cath care and medication. Patient had no further questions at this time.
--- NOTE | 2021-09-14 16:16 | PM.PNCARD ---
Progress Note: A&P Additional Plan Unstable angina, s/p PCI to LCX with one STEPHANIE, Hx of CABG, PCI to LAD and RCA HTN Plan Cont DAPT, Statin, B-minerva and ACEI F/U in clinic . Subjective Date/time seen: 09/14/21 16:16 Interval history: no acute events Review of Systems Review of Systems: All systems reviewed & are unremarkable except as noted in HPI and below Exam Narrative: Awake alert and oriented appears to be stated age Const: General: comfortable and no acute distress HENMT: General nose exam: Normal nares present Eyes: Sclera: sclerae normal Neck: Neck: supple and no JVD Chest: Other: No reproducible chest wall pain to palpation Resp: Auscultation: clear to auscultation bilaterally Cardio: Rate: regular rate Rhythm: regular rhythm Heart sounds: no murmurs GI: Auscultation: normal bowel sounds Skin: General skin exam: normal color Neuro: Cranial nerves: Yes Normal hearing present Cognition (Neuro): normal cognition Speech: normal speech Extrem: General: normal to inspection Other: no hematoma or swelling Psych: Mental Status: mental status grossly normal Objective Data Vital Signs Vital Signs: Vital Signs - 24 hr 09/13/21 16:45 09/13/21 18:00 09/13/21 19:04 Temperature 36.8 C Pulse Rate 98 100 101 H Respiratory Rate 18 24 H 15 Blood Pressure 152/87 H 151/75 H 143/58 H Pulse Oximetry 99 98 97 09/13/21 20:00 09/13/21 20:04 09/13/21 20:58 Temperature 37.1 C Pulse Rate 91 88 Respiratory Rate 18 Blood Pressure 148/51 H Pulse Oximetry 96 96 09/13/21 22:00 09/13/21 23:10 09/13/21 23:33 Temperature 36.5 C Pulse Rate 86 81 81 Respiratory Rate 16 16 Blood Pressure 136/64 Pulse Oximetry 96 96 09/14/21 00:00 09/14/21 02:00 09/14/21 04:00 Temperature 36.6 C Pulse Rate 92 80 92 Respiratory Rate 16 Blood Pressure 126/59 L Pulse Oximetry 97 09/14/21 05:49 09/14/21 08:00 09/14/21 08:29 Temperature 36.4 C L Pulse Rate 91 94 108 H Respiratory Rate 16 Blood Pressure 144/66 H Pulse Oximetry 96 09/14/21 10:00 09/14/21 12:00 Temperature 36.5 C Pulse Rate 88 96 Respiratory Rate 16 Blood Pressure 142/67 H Pulse Oximetry 98 Intake/Output Intake/Output: Intake & Output 09/11/21 09/12/21 09/13/21 09/14/21 23:59 23:59 23:59 23:59 Intake Total 2130 2210 490 Output Total 1700 2075 1600 Balance 430 135 -1110 Meds/Results Radiology Results: ITS Impressions Chest X-Ray 09/11/21 19:12 IMPRESSION: No acute cardiopulmonary process Labs Labs: Laboratory Results - last 24 hr 09/13/21 09/13/21 09/14/21 16:50 19:55 04:31 Sodium 138 Potassium 3.6 Chloride 107 Carbon Dioxide 25 Anion Gap 6 L BUN 13 Creatinine 0.80 Estim Creat Clear Calc 62 Estimated GFR > 60 Glucose 106 POC Capillary Glucose 132 H 254 H Calcium 7.9 L Magnesium 2.0 09/14/21 09/14/21 07:59 12:28 Sodium Potassium Chloride Carbon Dioxide Anion Gap BUN Creatinine Estim Creat Clear Calc Estimated GFR Glucose POC Capillary Glucose 113 H 131 H Calcium Magnesium
== END 2021-09-14 13:35 | disposition home or self-care (01) | DRG 247 ==
LOC: ANHED 09-12 01:33 → ANHICU 09-12 02:08 → ANHIMU 09-13 09:29
PROVIDERS: Family Medicine; Internal Medicine; Specialist; Admitting Provider Internal Medicine; Emergency Provider Emergency Medicine; PCP Family Medicine; Visit Provider Student in an Organized Health Care Education/Training Program
PROC: 4A023N7 Measurement of Cardiac Sampling and Pressure, Left Heart, Percutaneous Approach (ICD-10-PCS; CPT 93452; principal; 2021-09-13 13:00)
PROC: 4A023N7 Measurement of Cardiac Sampling and Pressure, Left Heart, Percutaneous Approach (ICD-10-PCS; CPT 92928; 2021-09-13 13:00)
DX: I25.110 Atherosclerotic heart disease of native coronary artery with unstable angina pectoris (principal); T82.855A Stenosis of coronary artery stent, initial encounter; Z95.5 Presence of coronary angioplasty implant and graft; Z86.79 Personal history of other diseases of the circulatory system; I10 Essential (primary) hypertension; G47.33 Obstructive sleep apnea (adult) (pediatric); E83.52 Hypercalcemia; K21.9 Gastro-esophageal reflux disease without esophagitis; E11.59 Type 2 diabetes mellitus with other circulatory complications; Z79.01 Long term (current) use of anticoagulants; Z79.899 Other long term (current) drug therapy; E78.00 Pure hypercholesterolemia, unspecified; Z85.3 Personal history of malignant neoplasm of breast; Z92.21 Personal history of antineoplastic chemotherapy; Z92.3 Personal history of irradiation; Z80.0 Family history of malignant neoplasm of digestive organs; Z82.49 Family history of ischemic heart disease and other diseases of the circulatory system; Z87.891 Personal history of nicotine dependence; Z79.82 Long term (current) use of aspirin; Z79.4 Long term (current) use of insulin; Z95.1 Presence of aortocoronary bypass graft
CPT/HCPCS: 36415; 71046; 80048; 80053; 82948; 83036; 83690; 83735; 83970; 84443; 84484; 85025; 85610; 85730; 93005; 93306; 93458; 96361; 96375; 99285; A9270; C1725; C1769; C1874; C1887; C1894; C9600; C9803; J0583; J1644; J1650; J1815; J2250; J2270; J3010; J3475; J7030; J7070; U0003; U0005

== ENCOUNTER 2022-03-17 08:51 | Outpatient (CLI) | payer MEDICARE, SELFPAY ==
--- NOTE | ~2022-03-17 | DEXA_ITS ---
Bone Density Report Name: SUNSHINE ACHARYA Age: 66 Sex: Female Ethnicity: White Date of : 1955 Indication: osteopenia; height loss; prior fracture; cancer;postmenopausal Referring Provider: MELANIE THRASHER Study: Bone densitometry was performed. Exam Date: March 17, 2022 Accession number: [id number] Bone Density: Region BMD T-score Z-score Classification AP Spine(L1, L2, L3) 0.961 -0.5 1.2 Normal Femoral Neck (Left) 0.750 -0.9 0.6 Normal Total Hip (Left) 0.979 0.3 1.5 Normal Femoral Neck (Right) 0.682 -1.5 0.0 Osteopenia Total Hip (Right) 0.906 -0.3 0.9 Normal Total Hip Mean 0.943 0.0 1.2 Normal World Health Organization criteria for BMD impression classify patients as: Normal (T-score at or above -1.0), Osteopenia (T-score between -1.0 and -2.5), or Osteoporosis (T-score at or below -2.5). 10-year Fracture Risk(1): Major Osteoporotic Fracture 14% Hip Fracture 1.4% Reported Risk Factors: [place] (), Neck BMD=0.682, BMI=33.1, previous fracture (1) FRAX(R) Version 3.08. Fracture probability calculated for an untreated patient. Fracture probability may be lower if the patient has received treatment. Previous Exams: Region Exam Age BMD T-score BMD Change BMD Change Date g/cm2 vs Baseline vs Previous AP Spine (L1-L3) 03/17/2022 66 0.961 -0.5 0.036 (3.9%)# 0.080 (9.1%)* 12/13/2019 64 0.880 -1.3 -0.044 (-4.8%) -0.088 (-9.1%) 01/26/2016 60 0.969 -0.4 0.044 (4.7%)* 0.077 (8.6%)* 08/13/2013 58 0.891 -1.2 -0.033 (-3.6%) -0.033 (-3.6%) 07/19/2011 56 0.925 -0.8 Total Hip(Left) 03/17/2022 66 0.979 0.3 0.016 (1.6%)# 0.036 (3.8%)* 12/13/2019 64 0.943 0.0 -0.020 (-2.1%) -0.006 (-0.6%) 01/26/2016 60 0.948 0.1 -0.015 (-1.5%) 0.011 (1.1%) 08/13/2013 58 0.938 0.0 -0.025 (-2.6%) -0.025 (-2.6%) 07/19/2011 56 0.963 0.2 Total Hip(Right) 03/17/2022 66 0.906 -0.3 -0.014 (-1.5%) -0.009 (-1.0%) 12/13/2019 64 0.915 -0.2 -0.005 (-0.5%) 0.014 (1.5%)# 01/26/2016 60 0.901 -0.3 -0.019 (-2.0%) 0.015 (1.7%) 08/13/2013 58 0.886 -0.5 -0.034 (-3.7%) -0.034 (-3.7%) 07/19/2011 56 0.920 -0.2 *Denotes significance at 95% confidence level, LSC for AP Spine = 0.022 g/cm2, LSC for Total Hip = 0.027 g/cm2 # Denotes dissimilar scan types or analysis methods Clinical Information Provided by Patient: Has had a low trauma fracture Has used the following medications: Vitamin D, Calcium Has the following
--- NOTE | ~2022-03-17 | MM_ITS ---
EXAMINATION: MM screening yunior BI w marie HISTORY: Screening mammogram TECHNIQUE: Craniocaudal and mediolateral oblique 3-D tomosynthesis images were obtained and synthetic 2-D images were generated. CAD analysis was submitted and interpreted. COMPARISON: 12/25/2020, 12/2019, 11/06/2018 bilateral screening mammogram examinations BREAST PARENCHYMAL COMPOSITION: There are scattered areas of fibroglandular density. FINDINGS: Postoperative change from partial left mastectomy is again noted with considerable volume l oss of the left lung and surgical clips in the posterior upper outer quadrant. Occasional bilateral benign calcifications of the breasts. There is no evidence of suspicious mass, c alcification, or architectural distortion to suggest malignancy in either breast. There has been no s uspicious interval change. IMPRESSION: 1. No mammographic evidence of malignancy. 2. Recommend routine screening mammography in one year. BI-RADS Category 2: Benign finding(s). Reviewed, dictated and finalized at location A. MATIC PINSETTER ADJUSTER
== END 2022-03-17 08:52 | disposition home or self-care (01) ==
PROVIDERS: PCP Family Medicine; Visit Provider Obstetrics & Gynecology Gynecology
DX: Z12.31 Encounter for screening mammogram for malignant neoplasm of breast (principal); Z78.0 Asymptomatic menopausal state; M85.88 Other specified disorders of bone density and structure, other site
CPT/HCPCS: 77063; 77067; 77080

== ENCOUNTER 2023-02-16 11:36 | Outpatient (CLI) | payer MEDICARE, SELFPAY ==
--- NOTE | ~2023-02-16 | MMUS_ITS ---
EXAMINATION: MM diagnostic yunior BI w marie, US breast RT limited HISTORY: Bilateral intermittent breast pain TECHNIQUE: Bilateral full field ML, MLO and CC and right ML, MLO and CC spot 3-D tomosynthesis images were performed and synthetic 2-D images were generated. CAD analysis was submitted and interpreted. High resolution lower outer quadrant and lower inner quadrant right breast ultrasound was performed. COMPARISON: 03/17/2022 bilateral screening mammogram BREAST PARENCHYMAL COMPOSITION: There are scattered areas of fibroglandular density. FINDINGS: MAMMOGRAPHIC FINDINGS: Surgical clips are noted posteriorly in the upper outer left breast, with volume loss of the left satnam ast compared to right, consistent with partial left mastectomy for breast cancer. There are scattered occasional bilateral benign calcifications. There are couple of 3.5 mm smaller low-density circumscribed nodular opacities in the posterior lower inner and outer quadrants of the right breast, likely benign. ULTRASOUND: No suspicious mass or shadowing is detected in the lower inner or lower outer quadrants of the right breast. IMPRESSION: 1. Status post left partial mastectomy for breast cancer. No mammographic or sonographic evidence of malignancy 2. Routine annual mammographic screening is recommended BI-RADS Category 2: Benign finding(s). Reviewed, dictated and finalized at location A. IMPRESSION: 1. Status post left partial mastectomy for breast cancer. No mammographic or so nographic evidence of malignancy 2. Routine annual mammographic screening is recommended BI-RADS Category 2: Benign finding(s).
== END 2023-02-16 11:37 | disposition home or self-care (01) ==
PROVIDERS: PCP Family Medicine; Visit Provider Nurse Practitioner
DX: N64.4 Mastodynia (principal); E55.9 Vitamin D deficiency, unspecified; Z85.3 Personal history of malignant neoplasm of breast; Z90.12 Acquired absence of left breast and nipple
CPT/HCPCS: 76642; 77062; 77066; G0279

== ENCOUNTER 2023-04-28 11:51 | Outpatient (CLI) | payer MEDICARE, SELFPAY ==
--- NOTE | ~2023-04-28 | XR_ITS ---
AP and lateral views of the left hip Clinical history: Pain Findings: No acute fracture or dislocation is seen. Osseous alignment is anatomic. The left hip joint and left SI joint are preserved. Soft tissues are unremarkable. Impression: No significant abnormality is seen. Reviewed, dictated and finalized at [facility]. MER TENDER Impression: No significant abnormality is seen.
== END 2023-04-28 11:52 | disposition home or self-care (01) ==
PROVIDERS: PCP Family Medicine; Visit Provider Physician Assistant
DX: M25.552 Pain in left hip (principal)
CPT/HCPCS: 73502

== ENCOUNTER 2024-02-19 15:12 | Outpatient (CLI) | payer MEDICARE, SELFPAY ==
--- NOTE | ~2024-02-19 | MM_ITS ---
EXAMINATION: MM screening yunior BI w marie HISTORY: Screening TECHNIQUE: Craniocaudal and mediolateral oblique 3-D tomosynthesis images were obtained and synthetic 2-D images were generated. CAD analysis was submitted and interpreted. COMPARISON: Comparison to multiple prior studies sequentially, with oldest reviewed study dated 11/02. BREAST PARENCHYMAL COMPOSITION: Not dense: There are scattered areas of fibroglandular density. FINDINGS: There is no evidence of suspicious mass, calcification, or architectural distortion to sugg est malignancy in either breast. There has been no suspicious interval change. IMPRESSION: 1. No mammographic evidence of malignancy. 2. Recommend routine screening mammography in one year. BI-RADS Category 1: Negative Reviewed, dictated and finalized at location B.
== END 2024-02-19 15:13 | disposition home or self-care (01) ==
LOC: ANHIMG 15:14
PROVIDERS: PCP Family Medicine; Visit Provider Nurse Practitioner Women's Health
DX: Z12.31 Encounter for screening mammogram for malignant neoplasm of breast (principal)
CPT/HCPCS: 77063; 77067

== ENCOUNTER 2024-02-24 01:33 | Day surgery (SDC) | payer MEDICARE, SELFPAY ==
[2024-02-15 10:16] VITALS: BMI 31.8
--- NOTE | 2024-02-15 10:31 | SUR.PREOP ---
Spoke with patient regarding medication Plavix. Pt. verbalizes understanding that the last dose of Plavix is to be taken on 02/16/2024 and the Endoscopist will instruct them when to restart after the procedure.
[2024-02-24 09:08] VITALS: BP 149/61; PULSE 88; RESP 18; TEMP 36.1; O2SAT 99; BMI 31.1
[2024-02-24 09:22] LABS: Glucose Point of Care 113 mg/dl (65-105)
[2024-02-24] MEDS: LACTATED RINGERS 1,000 ML 150 ML IV CONT (09:24)
--- NOTE | 2024-02-24 09:33 | SUR.PREOP ---
Patient states she vomited mag citrate and was able to get 3/[address] Triana made aware, no new orders received.
--- NOTE | 2024-02-24 09:50 | WPDANESEPPF ---
Anes - Initial Pre Proc Eval Procedure: Operation Date: 02/24/24 10:30 Proposed Procedures p Colonoscopy - Celio Triana MD Date/Time: 02/24/24 09:50 Surgeon: Celio Triana MD Pre Op Diagnosis: family hx colon cancer Patient Data Age: 68 Gender: F Height: 1.57 m Weight: 77.2 kg Last Vital Signs Temp 97 F L 02/24/24 09:08 Pulse 88 02/24/24 09:08 Resp 18 02/24/24 09:08 BP 149/61 H 02/24/24 09:08 Pulse Ox 99 02/24/24 09:08 O2 Del Method Room Air 02/24/24 09:08 Allergies Allergy/AdvReac Type Severity Reaction Status Date / Time No Known Allergies Allergy Verified 02/24/24 09:05 Home Medications Medication Instructions Recorded Confirmed Type metoprolol tartrate 50 mg tablet 50 mg PO Q12H 05/06/19 02/24/24 History calcium carbonate (Calcium 600) 600 mg PO DAILY 06/30/20 02/24/24 History cholecalciferol (vitamin D3) 25 50 mcg PO DAILY 06/30/20 02/24/24 History mcg (1,000 unit) tablet (Vitamin D3) atorvastatin 40 mg tablet 80 mg PO DAILY 08/16/20 02/24/24 History aspirin 81 mg tablet,delayed 81 mg PO DAILY 30 days #30 tabs 09/14/21 02/24/24 Rx release (Adult Low Dose Aspirin) clopidogrel 75 mg tablet 75 mg PO DAILY 30 days #30 tabs 09/14/21 02/24/24 Rx empagliflozin 10 mg tablet 10 mg PO DAILY 90 days #90 tabs 03/24/23 02/24/24 Rx (Jardiance) linaclotide 72 mcg capsule See Rx Instructions .Route 03/25/23 02/24/24 Rx (Linzess) .COMPLEX #90 caps pen needle, diabetic 32 gauge x #100 ea 09/03/23 02/24/24 Rx 5/32 (BD Felicia 2nd Gen Pen Needle) pantoprazole 40 mg tablet,delayed 40 mg PO QAM #90 tabs 11/09/23 02/24/24 Rx release lisinopril 40 mg tablet 40 mg PO DAILY #90 tabs 11/18/23 02/24/24 Rx semaglutide 2 mg/dose (8 mg/3 mL) 2 mg (0.75 mL) subcut WEEKLY 01/25/24 02/24/24 Rx subcutaneous pen injector (Ozempic) days #9 mL insulin degludec 100 unit/mL (3 20 unit (0.2 mL) subcut QHS 02/01/24 02/24/24 Rx mL) subcutaneous pen (Tresiba days #30 mL FlexTouch U-100 insulin) Laboratory Tests 02/24/24 09:13 POC Capillary Glucose 113 H mg/dl (65-105) Patient hx anesthesia problems: none Family hx anesthesia problems: none Results Review: All pre-operative results and documents have been reviewed as part of the pre-operative evaluation. [facility] Past Medical History Medical History Atrial fibrillation and flutter Atrial flutter Benign hypertension Body mass index (BMI) 35 or more (10/25/18) Breast cancer Status post lumpectomy with chemotherapy and radiation. She has yearly mammograms now. CAD, multiple vessel Cataract bilateral Chronic anticoagulation Coronary stent restenosis DVT prophylaxis Essential pulmonary hypertension GERD without esophagitis High cholesterol Hypercalcemia Hypoxemia Injury of head Low TSH level Mild asthma MELANIE (obstructive sleep apnea) Compliant with CPAP most evenings. Osteopenia Peripheral neuropathy Type 2 diabetes mellitus with hyperglycemia, with long-term current use of insulin Vitamin D deficiency Surgical History Surgical History History of 1978 and 1981 History of carpal tunnel surgery History of cholecystectomy History of foot surgery History of heart artery stent 09/[address] of [address] surgery [address] Lee History of knee surgery History of loop recorder History of lumpectomy of left breast History of open heart surgery 2012 multiple heart surgeries History of shoulder surgery Hx of CABG Hx of CABG Family History Family History Sibling Diabetes mellitus Family history of coronary artery disease Family history of premature coronary heart disease Father Carcinoma of colon Family history of smoking Mother Family history of lung cancer Family history of smoking Oth
--- NOTE | 2024-02-24 10:20 | PM.IMHP ---
H&P: HPI History of Present Illness Date/Time: 02/24/24 10:20 Chief Complaint: History of colon polyps Narrative: patient with a history of colonic polyps. Her last colonoscopy was 5 years ago. Review of Systems Review of Systems: All systems reviewed & are unremarkable except as noted in HPI and below FOR[facility], [facility] Past Medical History Medical History Atrial fibrillation and flutter Atrial flutter Benign hypertension Body mass index (BMI) 35 or more (10/25/18) Breast cancer Status post lumpectomy with chemotherapy and radiation. She has yearly mammograms now. CAD, multiple vessel Cataract bilateral Chronic anticoagulation Coronary stent restenosis DVT prophylaxis Essential pulmonary hypertension GERD without esophagitis High cholesterol Hypercalcemia Hypoxemia Injury of head Low TSH level Mild asthma MELANIE (obstructive sleep apnea) Compliant with CPAP most evenings. Osteopenia Peripheral neuropathy Type 2 diabetes mellitus with hyperglycemia, with long-term current use of insulin Vitamin D deficiency Surgical History Surgical History History of 1978 and 1981 History of carpal tunnel surgery History of cholecystectomy History of foot surgery History of heart artery stent 09/[address] of [address] Lee History of knee surgery History of loop recorder History of lumpectomy of left breast History of open heart surgery 2012 multiple heart surgeries History of shoulder surgery Hx of CABG Hx of CABG Family History Family History Sibling Diabetes mellitus Family history of coronary artery disease Family history of premature coronary heart disease Father Carcinoma of colon Family history of smoking Mother Family history of lung cancer Family history of smoking Other Family history of cardiovascular disease Family history of glaucoma Family history of obesity Heart disease High cholesterol Hypertension Social History Social History Social History: Patient smoked 1.5 pack per day times 20 years but quit 1996. She rarely drinks alcohol. No drug use. No history of drug use. She lives with her . She has 2 grown children. No pets. She is a full code. She nominates her to be the 1 to make medical decisions for her if she is unable. Smoking packs per day: 1.5 Smoking cigarettes per day: 30.0 Years smoked: 25 Smoking pack-years: 37.50 Smoking status: Former smoker Tobacco type: cigarettes Smoking end date: 05/11/96 Alcohol intake: current Alcohol use details: very rare Substance use: never Substance use type: does not use Lack of Transportation: No Lack of Food: Never True Current Housing: I Have Housing Concerned About Future Housing: No Difficulty Paying Gas/Electric Bills: No Difficulty Paying for Meds: No Currently Unemployed: No Education: High School Diploma/GED Difficulty w/ Childcare or Family Care: No Living arrangements: with family Additional living arrangements comments: with sp Gender identity (if verbalized by the patient): Female Spiritual care concerns: No Meds Home Medications and Allergies Home Medications Medication Instructions Recorded Confirmed Type metoprolol tartrate 50 mg tablet 50 mg PO Q12H 05/06/19 02/24/24 History calcium carbonate (Calcium 600) 600 mg PO DAILY 06/30/20 02/24/24 History cholecalciferol (vitamin D3) 25 50 mcg PO DAILY 06/30/20 02/24/24 History mcg (1,000 unit) tablet (Vitamin D3) atorvastatin 40 mg tablet 80 mg PO DAILY 08/16/20 02/24/24 History aspirin 81 mg tablet,delayed 81 mg PO DAILY 30 days #30 tabs 09/14/21 02/24/24 Rx release (Adult Low Dose Aspirin) clopidogrel 75 mg tablet 75 mg PO DA
[2024-02-24 10:56] VITALS: BP 100/43; PULSE 75; RESP 19; O2SAT 99
[2024-02-24 11:06] VITALS: BP 99/52; PULSE 76; RESP 24; O2SAT 99
[2024-02-24 11:16] VITALS: BP 114/56; PULSE 92; RESP 19; O2SAT 99
--- NOTE | 2024-02-24 11:20 | SUR.PHASEII ---
Pt. instructed to resume Plavix per Dr. Triana bedside instructions.
[2024-02-24 11:27] LABS: Glucose Point of Care 106 mg/dl (65-105)
== END 2024-02-24 11:29 | disposition home or self-care (01) ==
PROVIDERS: PCP Family Medicine; Visit Provider Internal Medicine Gastroenterology
PROC: 0DJD8ZZ Inspection of Lower Intestinal Tract, Via Natural or Artificial Opening Endoscopic (ICD-10-PCS; CPT 45378; principal; 2024-02-24 10:30)
DX: Z12.11 Encounter for screening for malignant neoplasm of colon (principal); D12.8 Benign neoplasm of rectum; K64.1 Second degree hemorrhoids; I25.10 Atherosclerotic heart disease of native coronary artery without angina pectoris; I48.91 Unspecified atrial fibrillation; I48.92 Unspecified atrial flutter; I10 Essential (primary) hypertension; K21.9 Gastro-esophageal reflux disease without esophagitis; E78.00 Pure hypercholesterolemia, unspecified; E83.52 Hypercalcemia; R09.02 Hypoxemia; J45.909 Unspecified asthma, uncomplicated; G47.33 Obstructive sleep apnea (adult) (pediatric); G62.9 Polyneuropathy, unspecified; E11.65 Type 2 diabetes mellitus with hyperglycemia; Z79.4 Long term (current) use of insulin; Z79.01 Long term (current) use of anticoagulants; Z79.82 Long term (current) use of aspirin; Z79.02 Long term (current) use of antithrombotics/antiplatelets; Z79.84 Long term (current) use of oral hypoglycemic drugs; Z79.85 Long-term (current) use of injectable non-insulin antidiabetic drugs; Z99.89 Dependence on other enabling machines and devices; Z98.890 Other specified postprocedural states; Z90.49 Acquired absence of other specified parts of digestive tract; Z95.1 Presence of aortocoronary bypass graft; Z95.5 Presence of coronary angioplasty implant and graft; Z85.3 Personal history of malignant neoplasm of breast; Z92.3 Personal history of irradiation; Z87.891 Personal history of nicotine dependence; Z92.21 Personal history of antineoplastic chemotherapy; Z86.718 Personal history of other venous thrombosis and embolism; Z80.1 Family history of malignant neoplasm of trachea, bronchus and lung; Z82.49 Family history of ischemic heart disease and other diseases of the circulatory system; Z80.0 Family history of malignant neoplasm of digestive organs
CPT/HCPCS: 45390; 82948; 88305; J2003; J2704; J7120

== ENCOUNTER 2024-07-07 02:02 | Day surgery (SDC) | payer MEDICARE, SELFPAY ==
[2024-06-24 15:01] VITALS: BMI 31.1
--- NOTE | 2024-06-24 15:10 | SUR.PREOP ---
Spoke with patient regarding medication plavix. patient verbalizes understanding that the last dose is to be taken on 06/29/2024 and the Endoscopist will instruct them when to restart after the procedure.
--- OUTSIDE RECORDS SUMMARY | 2024-07-07 02:09 | XMS_ITS | Referral Summary ---
Author Organization [facility] Address [address] [place] [address] Care Team Providers Care Center Medical Director Name Role Phone Romelia Tony MD Primary Care Provider [phone] Allergies No known active allergies Medications pantoprazole DR (PROTONIX) 40 mg EC tablet take 1 tablet (40MG) by oral route every day 0 3 Active aspirin 81 mg tablet Take 1 tablet (81 mg total) by mouth daily Active lisinopril (PRINIVIL,ZEST RIL) 40 mg tablet Take 1 tablet (40 mg total) by mouth daily Active calcium carbonate (CALCIUM 600 ORAL) Take 600 mg by mouth daily Active cholecalcifero l (VITAMIN D-3) 25 mcg (1,000 unit) tablet Take 2 tablets (2,000 Units total) by mouth daily Active cyanocobalamin (Vitamin B-12) 1,000 mcg tabletIndicati ons:Prevention of Vitamin B12 Deficiency Take 1 tablet (1,000 mcg total) by mouth daily Active Jardiance 10 mg tablet Take 1 tablet (10 mg total) by mouth daily Active Linzess 72 mcg capsule Take 1 capsule (72 mcg total) by mouth daily 3 Active nitroglycerin (NITROSTAT) 0.[address] 1 TABLET UNDER THE TONGUE NEEDED FOR CHEST PAIN 25 tablet 4 Active TRESIBA 100 unit/mL (3 mL) pen for injection Inject 0.2 mL (20 Units total) as directed daily Active clopidogreL (PLAVIX) 75 mg tablet Take 1 tablet by mouth once daily 90 tablet 2 4 Active Ozempic 1 mg/dose (4 mg/3 mL) pen injector injection 4 Active metoprolol tartrate (LOPRESSOR) 50 mg immediate release tablet Take 1 tablet by mouth twice daily 180 tablet 3 4 Active atorvastatin (LIPITOR) 40 mg tablet Take 1 tablet by mouth once daily 90 tablet 5 Active atorvastatin (LIPITOR) 40 mg tablet Take 1 tablet by mouth once daily 90 tablet 1 4 025 Discontinued Active Problems Problem Noted Date Diagnosed Date Paroxysmal atrial fibrillation ([facility]) 018 Overview (02/03/2018): Added automatically from request for surgery [id number] Malignant neoplasm of right female breast 2017 Status post placement of implantable loop record er 10/13/2017 Overview (10/30/2017): SocMetricstronic LNQ11 ILR implanted on 10/13/17 for suspected Afib. [facility] Card Atypical atrial flutter (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 Gender Identity Female 08/12/2023 5:10 PM CDT Sexual Orientation Straight 08/12/2023 5: 10 PM CDT Last Filed Vital Signs Vital Sign Reading Time Taken Comments Blood Pressure 120/62 01/21/2024 12:44 PM CDT Pulse 81 01/21/2024 12:44 PM CDT Temperature 36.8 C (98.3 F) 02/23/2018 3:14 PM CDT Respiratory Rate 20 02/16/2018 8:00 AM CDT Oxygen Saturation 93% 01/21/2024 12:44 PM CDT Inhaled Oxygen Concentration - - Weight 79.5 kg (175 lb 3.2 oz) 01/21/2024 12:44 PM CDT Height 157.5 cm (5' 2 ) 01/21/2024 12:44 PM CDT Body Mass Index 32.04 01/21/2024 12:44 PM CDT Plan of Treatment Not on file Medical Devices Implanted Type Area New Autos Delivery Driver Device Identifier Shelf Expiration Date Model / Serial / Lot System Cricket Coach Reveal Linq Insertable Automatically Activate - [id number] - [id number] Implanted:Qty: 1 on 10/13/2017 by Aravind Donahue MD at [facility] Implantable Loop Recorder Left: Chest Wall Medtronic Cardiac Rhythm Mgmt [id number] 08/05/2018 LINQSYS / [id number] S / D Description:MYCARELINK PATIE NT MONITOR SN:[id number] Insurance AETNA MEDICARE [facility] Address: [facility] [id number] [place] [id number] My Best Interest [facility] TNA MEDICARE Advance Directives For more information, please contact: [phone] * Full Code (Latest Code Status on File) Date Activated Date Inactivated Comments 02/15/2018 4:32 PM 02/16/2018 1:18 PM Care Teams Center Medical Director Relationship Specialty Start Date End Date Romelia Tony MD PCP - General Family Medicine 05/02/21
--- OUTSIDE RECORDS SUMMARY | 2024-07-07 02:09 | XMS_ITS | Encounter Summary ---
Author Organization [facility] Address [address] [facility] [address] [place] [address] Care Team Providers Care City Carrier Name Role Phone Trevor Persaud MD Primary Care Provider [phone] Trevor Persaud MD Primary Care Provider [phone] Anabel Hassan MD Primary Care Provider [phone] Romelia Tony MD Primary Care Provider [phone] Encounter Details Date Type Department Care Team (Late st Contact Info) Description 06/27/2016 Orders Only [facility] ProviderSulma MD [address] [place] [id number] Social History Tobacco Use Types Packs/Day Years Used Date Smoking Tobacco: Former Cigarettes Q uit: 05/11/1996 Alcohol Use Standard Drinks/Week Comments Yes 0 (1 standard drink = 0.6 oz pur e alcohol) Comments Unknown Sex and Gender Information Value Date Recorded Sex Assigned at Not on file Legal Sex Female 6:56 PM INTERPRETER 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 us Historical Provider [facility] DARIUS KO Final Result documented in this encounter Visit Diagnoses Not on filedocumented in this encounter Care Teams City Carrier Relationship Specialty Start Date End Date Trevor Persaud MD [address] [place] [address] PCP - General 08/08/16 12/22/17 Trevor Persaud MD [address] [place] [address] PCP - General 04/30/16 08/07/16 Anabel Hassan MD [address] [place] [place] [address] PCP - General Family Practice 12/23/17 05/01/21 Romelia Tony MD [address] [place] [place] [address] PCP - General Family Medicine 05/02/21 documented as of this encounter
--- OUTSIDE RECORDS SUMMARY | 2024-07-07 02:09 | XMS_ITS | Clinical Summary ---
Author Organization [facility] Address [address] [facility] Attn: Epic Prelude ADT EDSON JOSHI SHAYLEE [address] Care Team Providers Care Deli Cutter Slicer Name Role Phone Unavailable Primary Care Provider Unavailabl e Social History Tobacco Use Types Packs/Day Years Used Date Smoking Tobacco: Never Assessed Comments Unknown Sex and Gender Information Value Date Recorded Sex Assigned at Not on file Legal Sex Female 9:58 PM CDT Gender Identity Not on file Sexual Orientation Not on file Plan of Treatment Upcoming Encounters Date Type Department Care Team (Late st Contact Info) Description 09/15/2024 1:30 PM CDT Office Visit [facility] Oncology and H[facility]ology [place] [address] [place] [address] [facility] [address] [place] [address] Min Davis MD [address] [facility] [address] [place] [address] Health Maintenance Due Date Last Done Comments DTAP/TDAP/TD VACCINES (1 - Tdap) 1976 BREAST CANCER SCREENING 1997 COLORECTAL SCREENING 2002 Colorectal Cancer Screening 2002 FIT-DNA Q 3 years 2002 FIT/FOBT Q 1 year 2002 Flex Sig/CT Colonography Q 5 years 2002 PNEUMOCOCCAL VACCINE 65+ YEARS (1 of 1 - PCV) 03/28/20 07 ZOSTER VACCINE (1 of 2) 2007 OSTEOPOROSIS SCREENING 2022 INFLUENZA VACCINE (#1) 2023 RSV VACCINE (60+ or ) (1 - 1-dose 75+ series) 2032 Insurance AETNA PPO MCR
--- OUTSIDE RECORDS SUMMARY | 2024-07-07 02:09 | XMS_ITS | Clinical Summary ---
Author Organization [facility] Address [address] [place] [address] Care Team Providers Care Oil Well Fishing Tool Operator Name Role Phone Romelia Tony MD Primary Care Provider [phone] Allergies No known active allergies Medications pantoprazole [...] Noted Date Diagnosed Date Paroxysmal atrial fibrillation ([facility]/HCC) 018 Overview (02/03/2018): Added automatically from request for surgery [id number] Malignant neoplasm of right female breast 2017 Status post placement of implantable loop record er 10/13/2017 Overview (10/30/2017): Mobilization Labstronic LNQ11 ILR implanted on 10/13/17 for suspected Afib. [facility] Card Atypical atrial flutter ([facility]) 08/25/2017 Coronary artery disease of n ative artery with stable angina pectoris 10/21/2016 Status post coronary artery stent placement 10/09 Status post coronary artery bypass grafting 10/09 AF (paroxysmal atrial fibrillation) ([facility]) Atherosclerosis of coronary artery 10/07/2012 Immunizations Immunization Administration Dates Next Due Influenza, Unspecified 01/19/2017,2015,01/22/2015,12/20/2013, 3 Surgical History Surgery Date Site/Laterality Comments OTHER SURGICAL HISTORY Spinal Fusion - cervical SHOULDER SURGERY Right Shoulder Surgery OTHER SURGICAL HISTORY Heel spur OTHER SURGICAL HISTORY Lumpectomy left & Chemo (stage I) CHOLECYSTECTOMY 05/11/2011 - 05/10/2012 Cholecystectomy CORONARY ARTERY BYPASS GRAFT 05/11/2012 - 05/10/2013 cabg x 3 CARDIAC CATHETERIZATION CORONARY STENT PLACEMENT SECTION x 2 BREAST SURGERY 06/09/2004 SECTION 1978 & 1981 Medical History Medical History Date Comments Hypertension Hypertension Hx Other Medical Diabetes Type I I Hx Other Medical 2007 Atrial Fib - NS R (on Amio) Diabetes mellitus (HCC) Arrhythmia Cancer (CMS/HCC) (HCC) Sleep apnea has welfare worker but does not use Coronary artery disease Hyperlipidemia A-fib (CMS/HCC) (HCC) Atrial flutter (CMS/HCC) (HCC) Breast cancer (HCC) Left breast lumpectomy, chemo and radiation Cataract 10/09/2018 GERD (gastroesophageal reflux disease) Family History Medical History Relation Name Comments Early Brother 2 Ilya Perry Hypertension Brother 2 Ilya Perry Hypertension; Cancer Father Siddhartha Taveras Heart attack Father Siddhartha Taveras Myocardial Infarction; Cause of : Myocardial Infarction Cancer Maternal Grandmother Zeina Taveras Breast cancer Mother Meagan Taveras Cancer, breast; Cause of : Cancer, breast Cancer Mother Meagan Taveras Early Sister 2 Heather Tucker Hypertension Sister 2 Heather Tucker Hypertension; Relation Name Status Comments Brother 1 Alive Brother 2 Ilya Perry Father Siddhartha Taveras Maternal Grandmother Zeina Taveras Mother Meagan Taveras Sister 1 Alive Sister 2 Heather Tucker Social History Tobacco Use Types Packs/Day Years Used Date Smoking Tobacco: Former Cigarettes Q uit: 05/21/1996 Smokeless Tobacco: Never Tobacco Cessation:Counseling Given: Not Answered Comments:1996 Alcohol Use Standard Drinks/Week Comments Yes 1 (1 standard drink = 0.6 oz pur e alcohol) very Little Comments Unknown Sex and Gender Information Value Date Recorded Sex Assigned at Not on file Legal Sex Female 6:56 PM 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 Gender Identity Female 08/12/2023 5:10 PM CDT Sexual Orientation Straight 08/12/2023 5: 10 PM CDT Obstetrics History Last Filed Vital Signs Vital Sign Reading [...] 01/21/2024 12:44 PM CDT Plan of Treatment Health Maintenance Due Date Last Done Comments Breast Cancer Screening-Mammogram 1957 Colon Cancer Screening-Colonoscopy 1957 Depression Screening 1957 Fall Risk Assessment 1957 Hepatitis C Screening 1957 Osteoporosis Screening-Bone Density Scan 1957 Hepatitis B Screening 1975 Zoster Vaccine (1 of 2) 2007 Pneumococcal vaccine 65+ (2 of 2 - PCV) 01/17/2010 01/17/2009 Well Visit 65+ 2022 Influenza Vaccine (#1) 2024 8, 01/19/2017, 01/21/2016, Additional history exists DTaP/Tdap/Td Vaccine (2 - Td or Tdap) 01/20/2026 01/21/2016 Medical Devices Implanted Type Area Sifter And Miller Device Identifier Shelf Expiration Date Model / Serial / Lot System Manager Purchasing Reveal Linq Insertable Automatically Activate - [id number] - [id number] Implanted:Qty: 1 on 10/13/2017 by Aravind Donahue MD at [facility] Implantable Loop Recorder Left: Chest Wall Medtronic Cardiac Rhythm Mgmt LNQ11 08/05/2018 LINQSYS / [id number] S / D Description:MYCARELINK PATIE NT MONITOR SN:[id number] Insurance AETNA MEDICARE [employer] [facility] AETNA MEDICARE Advance Directives For more information, please contact: [phone] * Full Code (Latest Code Status on File) Date Activated Date Inactivated Comments 02/15/2018 4:32 PM 02/16/2018 1:18 PM Care Teams Oil Well Fishing Tool Operator Relationship Specialty Start Date End Date Romelia Tony MD PCP - General Family Medicine 05/02/21
--- OUTSIDE RECORDS SUMMARY | 2024-07-07 02:09 | XMS_ITS | Continuity of Care Document ---
Author Organization [facility] Address [address] [place] [address] [place] [address] Phone Care Team Providers Care Complaint Supervisor Name Role Phone Chriss Nunez DO Unavailable Unavailable Advance Directives Directive Yes / No Effective Date File Name No Information Encounters Encounter Description Practice Location Reason(s) For Visit Diagnoses Date Provider Providers Copied on Encounter [facility], [id number] [place] [address] [address], [place], [place], [id number], tel:[phone] [facility] No Information Enrique Crockett. [address] [facility], [place], [address], [place]. tel: [phone] Family History Family Member Type Diagnosis Age At Onset No Information Payers Payer name Insurance type Covered constitution party ID Authoriza tioswald(s) [facility] [id number] Social History Type Description Quantity Date Captured Comments Sex Female Smoking Status No Information Chief Complaint And Reason For Visit No Information Reason For Referral Reason For Referral No Information History Of Present Illness Encounter Date Complaint History Of Prese nt Illness No Information Functional Status Date Functional Assessmen t No Information Instructions Date Instruction Additional Infor mation No Information Assessments Type Assessment Date No Information Patient Care Teams Name Effective Dates (start - stop) Status Members No Information
--- OUTSIDE RECORDS SUMMARY | 2024-07-07 02:09 | XMS_ITS ---
Author Organization [facility] Address [address] [place] [address] Care Team Providers Care Precise Winder Name Role Phone Romelia Tony MD Primary Care Provider [phone] Active Problems Problem Noted Date Diagnosed Date Paroxysmal atrial fibrillation ([facility]) 018 Overview (02/03/2018): Added automatically from request for surgery [id number] Malignant neoplasm of right female breast 2017 Status post placement of implantable loop record er 10/13/2017 Overview (10/30/2017): Medtronic LNQ11 ILR implanted on 10/13/17 for suspected Afib. 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 Past Treatment and Therapy Plans No past plan information found. Lifetime Dose Tracking * Chemical Lifetime Dose Automatic Entry Manual Entr y Radiation 51 mSv 0 mSv 51 mSv Air kerma at the reference point (Ka,r) 185 mGy 0 mGy 185 mGy
[2024-07-07 12:03] VITALS: BP 170/52; PULSE 60; RESP 16; TEMP 36.6; O2SAT 100
[2024-07-07 12:17] LABS: Glucose Point of Care 85 mg/dl (65-105)
[2024-07-07] MEDS: LACTATED RINGERS 1,000 ML 150 ML IV CONT (12:30)
--- NOTE | 2024-07-07 13:25 | WPDANESEPPF ---
Anes - Initial Pre Proc Eval Procedure: Operation Date: 07/07/24 12:30 Proposed Procedures p Esophagogastroduodenoscopy - Celio Triana MD Date/Time: 07/07/24 13:25 Surgeon: Celio Triana MD Pre Op Diagnosis: epigastric pain,GERD,Nausea Patient Data Age: 69 Gender: F Height: 1.55 m Weight: 75 kg Last Vital Signs Temp 97.9 F 07/07/24 12:03 Pulse 60 07/07/24 12:03 Resp 16 07/07/24 12:03 BP 170/52 H 07/07/24 12:03 Pulse Ox 100 07/07/24 12:03 O2 Del Method Room Air 07/07/24 12:03 Allergies Allergy/AdvReac Type Severity Reaction Status Date / Time No Known Allergies Allergy Verified 06/24/24 14:57 Home Medications ?Medication ?Instructions ?Recorded ?Confirmed ?Type metoprolol tartrate 50 mg tablet 50 mg PO Q12H 05/06/19 07/07/24 History calcium carbonate (Calcium 600) 600 mg PO DAILY 06/30/20 07/07/24 History cholecalciferol (vitamin D3) 25 50 mcg PO DAILY 06/30/20 07/07/24 History mcg (1,000 unit) tablet (Vitamin D3) atorvastatin 40 mg tablet 80 mg PO DAILY 08/16/20 07/07/24 History aspirin 81 mg tablet,delayed 81 mg PO DAILY 30 days #30 tabs 09/14/21 07/07/24 Rx release (Adult Low Dose Aspirin) clopidogrel 75 mg tablet 75 mg PO DAILY 30 days #30 tabs 09/14/21 07/07/24 Rx pen needle, diabetic 32 gauge x #100 ea 09/03/23 06/24/24 Rx 5/32 (BD Felicia 2nd Gen Pen Needle) pantoprazole 40 mg tablet,delayed 40 mg PO QAM #90 tabs 11/09/23 07/07/24 Rx release linaclotide 72 mcg capsule See Rx Instructions .Route 04/25/24 07/07/24 Rx (Linzess) .COMPLEX #90 caps lisinopril 40 mg tablet 40 mg PO DAILY #90 tabs 05/10/24 07/07/24 Rx ondansetron 4 mg disintegrating 4 mg PO Q8H #14 tabs 05/23/24 06/24/24 Rx tablet empagliflozin 25 mg tablet 25 mg PO DAILY #90 tabs 06/13/24 06/24/24 Rx (Jardiance) glucagon 1 mg/0.2 mL subcutaneous 1 mg (0.2 mL) subcut ONCE #0.4 mL 06/13/24 06/24/24 Rx auto-injector (Gvoke HypoPen 2-Pack) glucose 4 gram chewable tablet 16 g (4 x 4 gram) PO Q15M PRN 06/13/24 06/24/24 Rx (Dex4 Glucose) hypoglycemia #60 tabs insulin degludec 100 unit/mL (3 16 unit (0.16 mL) subcut QHS #15 mL 06/13/24 07/07/24 Rx mL) subcutaneous pen (Tresiba FlexTouch U-100 insulin) Laboratory Tests 07/07/24 12:09 POC Capillary Glucose 85 mg/dl (65-105) Patient hx anesthesia problems: none Family hx anesthesia problems: none Results Review: All pre-operative results and documents have been reviewed as part of the pre-operative evaluation. [facility] Past Medical History Medical History Peripheral neuropathy Vitamin D deficiency Mild asthma Low TSH level Injury of head Hypoxemia GERD without esophagitis Essential pulmonary hypertension CAD, multiple vessel Body mass index (BMI) 35 or more (10/25/18) Benign hypertension Atrial fibrillation and flutter Cataract bilateral Coronary stent restenosis Chronic anticoagulation Hypercalcemia DVT prophylaxis Type 2 diabetes mellitus with hyperglycemia, with long-term current use of insulin Osteopenia High cholesterol MELANIE (obstructive sleep apnea) Compliant with CPAP most evenings. Breast cancer Status post lumpectomy with chemotherapy and radiation. She has yearly mammograms now. Atrial flutter Surgical History Surgical History History of open heart surgery 2013 multiple heart surgeries History of heart artery stent 09/2021 History of foot surgery History of carpal tunnel surgery History of shoulder surgery History of knee surgery Hx of CABG History of cholecystectomy History of hip surgery Dr. Lee History of 1978 and 1981 History of lumpectomy of left breast History of loop recorder Hx of CABG Family History Family History Sibling Diabetes mellitus Family history of coronary artery disease Family history of premature coronary heart disease Father Carcinoma of colon Family history of smoking Mother Family history of lung cancer Family history of smoking Other Family history of cardiovascular disease Family history of glaucoma Family history of obesity Heart disease High cholesterol Hypertension Social History Social History Social History: Patient smoked 1.5 pack per day times 20 years but quit 1996. She rarely drinks alcohol. No drug use. No history of drug use. She lives with her . She has 2 grown children. No pets. She is a full code. She nominates her to be the 1 to make medical decisions for her if she is unable. Smoking packs per day: 1.5 Smoking cigarettes per day: 30.0 Years smoked: 23 Smoking pack-years: 34.50 Smoking status: Former smoker (quit 1996) Tobacco type: cigarettes Smoking end date: 05/11/96 Alcohol intake: current Alcohol use details: very rare Substance use: never Lack of Transportation: No Lack of Food: Never True Current Housing: I Have Housing Concerned About Future Housing: No Difficulty Paying Gas/Electric Bills: No Difficulty Paying for Meds: No Currently Unemployed: No Education: High School Diploma/GED Difficulty w/ Childcare or Family Care: No Living arrangements: with family Additional living arrangements comments: With sp Gender identity (if verbalized by the patient): Female Spiritual care concerns: No Anes - Eval Final PreProcedure Day of Procedure 07/07/24 13:25 Patient weight: obese Lungs: normal air movement Airway: Mallampati scale class II Neurological: alert and oriented Last oral intake: >/= 8 hours ASA classification: III Emergent: no Anesthetic plan: proceed Anesthesia type and monitoring: general GIVS and standard monitoring Results Review: All pre-operative results and documents have been reviewed as part of the pre-operative evaluation. HTN, hyperlipidemia, hx of afib, plavix on hold, MELANIE but noncompliant w CPAP, ex smoker quit , CABG approx 2012, s/p PTCA 2021. Pt for EGD. Informed Consent: The patient's anesthetic plan and its attendant risks and benefits were discussed with the patient/family/POA. Questions were solicited and answers provided to the satisfaction of the patient/family/POA.
[2024-07-07 13:48] VITALS: BP 94/36; PULSE 58; RESP 22; O2SAT 95
[2024-07-07 13:58] VITALS: BP 102/75; PULSE 58; RESP 22; O2SAT 99
[2024-07-07 14:08] VITALS: BP 109/41; PULSE 56; RESP 21; O2SAT 100
== END 2024-07-07 14:30 | disposition home or self-care (01) ==
PROVIDERS: PCP Family Medicine; Referring Provider Student in an Organized Health Care Education/Training Program; Visit Provider Internal Medicine Gastroenterology
PROC: 0DJ08ZZ Inspection of Upper Intestinal Tract, Via Natural or Artificial Opening Endoscopic (ICD-10-PCS; CPT 43239; principal; 2024-07-07 12:30)
DX: R13.10 Dysphagia, unspecified (principal); K29.51 Unspecified chronic gastritis with bleeding; E11.9 Type 2 diabetes mellitus without complications; Z87.891 Personal history of nicotine dependence; E66.9 Obesity, unspecified; Z68.31 Body mass index [BMI] 31.0-31.9, adult
CPT/HCPCS: 43239; 82948; 88305; J2003; J2704; J7120

== ENCOUNTER 2024-07-14 09:47 | Outpatient (CLI) | payer MEDICARE, SELFPAY ==
--- NOTE | ~2024-07-14 | DEXA_ITS ---
Bone Density Report Name: SUNSHINE ACHARYA Age: 69 Sex: Female Ethnicity: White Date of : 1955 Indication: postmenopausal; screening for osteoporosis; height loss; prior fracture; cancer; Referring Provider: ROBYN, TANGELA Study: Bone densitometry was performed. Exam Date: July 14, 2024 Accession number: [id number] Bone Density: Region BMD T-score Z-score Classification AP Spine(L1-L4) 0.931 -1.1 0.9 Osteopenia Femoral Neck (Left) 0.741 -1.0 0.7 Normal Total Hip (Left) 0.933 -0.1 1.3 Normal Femoral Neck (Right) 0.665 -1.7 0.0 Osteopenia Total Hip (Right) 0.900 -0.3 1.0 Normal Total Hip Mean 0.916 -0.2 1.2 Normal World Health Organization criteria for BMD impression classify patients as: Normal (T-score at or above -1.0), Osteopenia (T-score between -1.0 and -2.5), or Osteoporosis (T-score at or below -2.5). 10-year Fracture Risk: FRAX not reported because: Prior hip or vertebral fracture Previous Exams: Region Exam Age BMD T-score BMD Change BMD Change Date g/cm2 vs Baseline vs Previous AP Spine (L1-L4) 07/14/2024 69 0.931 -1.1 -0.005 (-0.5%) -0.034 (-3.5%) 01/26/2016 60 0.965 -0.7 0.029 (3.1%)* 0.055 (6.1%)* 08/13/2013 58 0.909 -1.3 -0.026 (-2.8%) -0.026 (-2.8%) 07/19/2011 56 0.936 -1.0 Total Hip(Left) 07/14/2024 69 0.933 -0.1 -0.030 (-3.2%) -0.046 (-4.7%) 03/17/2022 66 0.979 0.3 0.016 (1.6%)# 0.036 (3.8%)* 12/13/2019 64 0.943 0.0 -0.020 (-2.1%) -0.006 (-0.6%) 01/26/2016 60 0.948 0.1 -0.015 (-1.5%) 0.011 (1.1%) 08/13/2013 58 0.938 0.0 -0.025 (-2.6%) -0.025 (-2.6%) 07/19/2011 56 0.963 0.2 Total Hip(Right) 07/14/2024 69 0.900 -0.3 -0.020 (-2.2%) -0.006 (-0.7%) 03/17/2022 66 0.906 -0.3 -0.014 (-1.5%) -0.009 (-1.0%) 12/13/2019 64 0.915 -0.2 -0.005 (-0.5%) 0.014 (1.5%)# 01/26/2016 60 0.901 -0.3 -0.019 (-2.0%) 0.015 (1.7%) 08/13/2013 58 0.886 -0.5 -0.034 (-3.7%) -0.034 (-3.7%) 07/19/2011 56 0.920 -0.2 *Denotes significance at 95% confidence level, LSC for AP Spine = 0.022 g/cm2, LSC for Total Hip = 0.027 g/cm2 # Denotes dissimilar scan types or analysis methods Clinical Information Provided by Patient: Have had a previous hip or vertebral fracture Has had a low trauma fracture Has used the following medications: Vitamin D, Calcium Has the following medical conditions: Cancer Patient maximum height was 62.5 Menopause Age: 50 No regular weight bearing exercise Does not regularly consume dairy products Drinks caffeinated beverages Onset of menses at age 16 Number of children 2 Impression: The patient has low bone mass, based on the Right Femoral Neck T-score. The patient has risk factors, including: previous fracture. The BMD for the AP Spine (L1-L4) decreased, changing by -3.5% since the last DXA exam. Discussion: INCREASED RISK OF FRACTURE DUE TO HISTORY OF FRACTURE. The patient's previous fracture puts the patient at high risk of a future fracture. In untreated patients, the risk of osteoporotic fracture increases approximately two-fold for each 1.0 SD decrease in T-score. Low bone density is not the only risk factor for fracture; also consider factors such as patient's age, frailty or poor health, risk of falling, risk of injury, previous osteoporotic fracture, family history of osteoporosis, cigarette smoking, low body weight, etc. Not everyone with a low trauma fracture has osteoporosis; osteomalacia and other metabolic bone disorders should also be considered. Patients who have osteoporosis should be evaluated for specific diseases and conditions (secondary causes) that may cause or contribute to bone loss and fracture risk. National Osteoporosis Foundation (NOF) recommends pharmacologic intervention for patients with a prior hip or vertebral fracture regardless of BMD T-score. The patient should follow a healthful lifestyle (good nutrition with adequate calcium and vitamin D, and appropriate weight-bearing exercise). Follow-Up: Consider a repeat BMD and Vertebral Fracture Assessment (VFA) exam in 2 years or sooner if medically necessary, to reassess this patient's status. Reported by: STORM on 07/14/2024 10:30:00 AM. Reviewed, dictated and finalized at location AViktoria SYLVESTER
--- OUTSIDE RECORDS SUMMARY | 2024-07-14 10:55 | XMS_ITS | Clinical Summary ---
Author Organization [facility] Address [address] [facility] Attn: Epic Prelude ADT EDSON JOSHI SHAYLEE [address] Care Team Providers Care Machinist General Name Role Phone Unavailable Primary Care Provider [...] Description 09/15/2024 1:30 PM CDT Office Visit [facility] Oncology and Hematology - [place] [address] [place] [address] [facility] [address] [place] [address] Min Davis MD [address] [facility] [address] [place] [address] Health Maintenance Due Date Last Done Comments DTAP/TDAP/TD VACCINES (1 - Tdap) 1976 BREAST CANCER SCREENING 1997 COLORECTAL SCREENING 2002 Colorectal Cancer Screening 2002 FIT-DNA Q 3 years 2002 FIT/FOBT Q 1 year 2002 Flex Sig/CT Colonography Q 5 years 2002 PNEUMOCOCCAL VACCINE 50+ YEARS (1 of 1 - PCV) 03/28/20 07 ZOSTER VACCINE (1 of 2) 2007 OSTEOPOROSIS SCREENING 2022 INFLUENZA VACCINE (#1) 2023 RSV VACCINE (60+ or ) (1 - 1-dose 75+ series) 2032 Insurance AETNA PPO MCR
--- OUTSIDE RECORDS SUMMARY | 2024-07-14 10:55 | XMS_ITS | Referral Summary ---
Author Organization [facility] Address [address] [place] [address] Care Team Providers Care Data Entry Machine Operator Name Role Phone Romelia Tony MD Primary Care Provider Allergies No known active allergies Medications pantoprazole [...] Noted Date Diagnosed Date Paroxysmal atrial fibrillation 02/03/2018 Overview (02/03/2018): Added automatically from request for surgery [id number] Malignant neoplasm of right female breast 2017 Status post placement of implantable loop record er 10/13/2017 Overview (10/30/2017): Medtronic LNQ11 ILR implanted on 10/13/17 for suspected Afib. 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 Gender Identity Female 08/12/2023 5:10 PM CDT [...] on file Medical Devices Implanted Type Area General Laborer Device Identifier Shelf Expiration Date Model / Serial / Lot System Stenciler Reveal Linq Insertable Automatically Activate - [id number] - [id number] Implanted:Qty: 1 on 10/13/2017 by Aravind Donahue MD at [facility] Implantable Loop Recorder Left: Chest Wall Medtronic Cardiac Rhythm Mgmt LNQ11 08/05/2018 LINQSYS / [id number] S / D Description:MYCARELINK PATIE NT MONITOR SN:[id number] Insurance TNA MEDICARE [facility]ALTH[facility]r [facility] AETNA MEDICARE Advance Directives For more information, please contact: [phone] * Full Code (Latest Code Status on File) Date Activated Date Inactivated Comments 02/15/2018 4:32 PM 02/16/2018 1:18 PM Care Teams Data Entry Machine Operator Relationship Specialty Start Date End Date Romelia Tony MD PCP - General Family Medicine 05/02/21
--- OUTSIDE RECORDS SUMMARY | 2024-07-14 10:55 | XMS_ITS | Encounter Summary ---
Author Organization [facility] Address [address] [facility] [address] [place] [address] Care Team Providers Care Underwater Photographer Name Role Phone Trevor Persaud MD Primary Care Provider [phone] Trevor Persaud MD Primary Care Provider [phone] Anabel Hassan MD Primary Care Provider [phone] Romelia Tony MD Primary Care Provider [phone] Encounter Details Date Type Department Care Team (Late st Contact Info) Description 06/27/2016 Orders Only [facility] ProviderSulma MD [address] [place] [address] Social History Tobacco Use Types Packs/Day Years Used Date Smoking Tobacco: Former Cigarettes Q uit: 05/11/1996 Alcohol Use Standard Drinks/Week Comments Yes 0 (1 standard drink = 0.6 oz pur e alcohol) Comments Unknown Sex and Gender Information Value Date Recorded Sex Assigned at Not on file Legal Sex Female 6:56 PM DIRECTOR OF ENROLLMENT Gender Identity Female 08/12/2023 5:10 PM CDT [...] on filedocumented in this encounter Care Teams Underwater Photographer Relationship Specialty Start Date End Date Trevor Persaud MD [address] [place] [address] PCP - General 08/08/16 12/22/17 Trevor Persaud MD [address] [place] [address] PCP - General 04/30/16 08/07/16 Anabel Hassan MD [address] [place] [address] PCP - General Family Practice 12/23/17 05/01/21 Romelia Tony MD [address] [place] [address] PCP - General Family Medicine 05/02/21 documented as of this encounter
--- OUTSIDE RECORDS SUMMARY | 2024-07-14 10:55 | XMS_ITS ---
Author Organization [facility] Address [address] [place] [address] Care Team Providers Care Ict Business Development Manager Name Role Phone Romelia Tony MD Primary Care Provider [phone] Active Problems Problem Noted Date Diagnosed Date Paroxysmal atrial fibrillation 02/03/2018 Overview (02/03/2018): Added automatically from request for surgery [id number] Malignant neoplasm of right female breast 2017 Status post placement of implantable loop record er 10/13/2017 Overview (10/30/2017): Medtronic LNQ11 ILR implanted on 10/13/17 for suspected Afib. 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
--- OUTSIDE RECORDS SUMMARY | 2024-07-14 10:55 | XMS_ITS | Continuity of Care Document ---
Author Organization [facility] Address [address] [place] [address] [place] [address] Phone Care Team Providers Care Mannequin Maker Name Role Phone Chriss Nunez DO Unavailable Unavailable Advance Directives Directive Yes / No Effective Date File Name No Information Encounters Encounter Description Practice Location Reason(s) For Visit Diagnoses Date Provider Providers Copied on Encounter [facility], [address] [place] [address] [address], [place], [place], [id number], tel:[phone] [facility] No Information Enrique Crockett. [address] [facility], [place], [address], [place]. tel: [phone] Family History Family Member Type Diagnosis Age At Onset No Information Payers Payer name Insurance type Covered constitution party ID Authoriza tioswald(s) [facility] [id number] Social History Type Description Quantity Date Captured [...]
--- OUTSIDE RECORDS SUMMARY | 2024-07-14 10:55 | XMS_ITS | Clinical Summary ---
Author Organization [facility] Address [address] [place] [address] Care Team Providers Care Cottage Master Name Role Phone Romelia Tony MD Primary Care Provider [phone] Allergies No known active allergies Medications pantoprazole [...] (02/03/2018): Added automatically from request for surgery [id number] Malignant neoplasm of right female breast 2017 Status post placement of implantable loop record er 10/13/2017 Overview (10/30/2017): Medtronic LNQ11 ILR implanted on 10/13/17 for suspected Afib. 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 Implantable Loop Recorder Left: Chest Wall Medtronic Cardiac Rhythm Mgmt LNQ11 08/05/2018 LINQSYS / [id number] S / D Description:MYCARELINK PATIE NT MONITOR SN:[id number] Insurance TNA MEDICARE BY [facility] MEDIC[facility] Address: [facility] [id number] [place] [id number] [employer] [facility] TNA MEDICARE Advance Directives For more information, please contact: [phone] * Full Code (Latest Code Status on File) Date Activated Date Inactivated Comments 02/15/2018 4:32 PM 02/16/2018 1:18 PM Care Teams Cottage Master Relationship Specialty Start Date End Date Romelia Tony MD PCP - General Family Medicine 05/02/21
== END 2024-07-14 09:48 | disposition home or self-care (01) ==
PROVIDERS: PCP Family Medicine; Visit Provider Nurse Practitioner Women's Health
DX: M85.89 Other specified disorders of bone density and structure, multiple sites (principal); Z78.0 Asymptomatic menopausal state
CPT/HCPCS: 77080

== ENCOUNTER 2024-09-15 14:03 | Outpatient (CLI) | payer MEDICARE, SELFPAY ==
--- OUTSIDE RECORDS SUMMARY | 2024-09-15 14:07 | XMS_ITS | Clinical Summary ---
Author Organization [facility] Address [address] [place] [address] Care Team Providers Care Property Portfolio Officer Name Role Phone Romelia Tony MD Primary Care Provider [phone] Allergies No known active allergies Medications pantoprazole DR (PROTONIX) 40 mg EC tablet take 1 tablet (40MG) by oral route every day 0 10/01/19 13 Active aspirin 81 mg tablet Take 1 [...] capsule (72 mcg total) by mouth daily 12/31/19 23 Active TRESIBA 100 unit/mL (3 mL) pen for injection Inject 0.2 mL (20 Units total) as directed daily Active clopidogreL (PLAVIX) 75 mg tablet Take 1 tablet by mouth once daily 90 tablet 2 11/16/19 24 Active metoprolol tartrate (LOPRESSOR) 50 mg immediate release tablet Take 1 tablet by mouth twice daily 180 tablet 3 03/14/20 24 Active atorvastatin (LIPITOR) 40 mg tablet Take 1 tablet by mouth once daily 90 tablet 09/13/19 25 Active nitroglycerin (NITROSTAT) 0.[address] 1 tablet (0.4 mg total) under the tongue every 5 (five) minutes as needed for chest pain 25 tablet 09/13/19 25 Active nitroglycerin (NITROSTAT) 0.[address] 1 TABLET UNDER THE TONGUE NEEDED FOR CHEST PAIN 25 tablet 06/22/19 24 025 Discontinued(Re order) Ozempic 1 mg/dose (4 mg/3 mL) pen injector injection 10/31/19 24 025 Discontinued(Th erapy completed) atorvastatin (LIPITOR) 40 mg tablet Take 1 tablet by mouth once daily 90 tablet 06/20/19 25 025 Discontinued Active Problems Problem Noted Date Diagnosed Date Paroxysmal atrial fibrillation 02/03/2018 Overview (02/03/2018): Added automatically from request for surgery [id number] Malignant neoplasm of right female breast 2017 Status post placement of implantable loop record er 10/13/2017 Overview (10/30/2017): Medtronic [id number] ILR implanted on 10/13/17 for suspected Afib. 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 10/21/2016 Status post coronary artery stent placement 10/09 Status post coronary artery bypass grafting 10/09 AF (paroxysmal atrial fibrillation) 10/21/2016 Atherosclerosis of coronary artery 10/07/2012 Encounters Date Type Department Care Team Description 09/12/2024 9:30 AM CDT Office Visit [facility] Cardiology at [address] [place] [address] Toney Fontana MD Coronary artery disease of [place] artery of [place] heart with stable angina pectoris (Primary Dx); Status post coronary artery stent placement; Status post coronary artery bypass grafting; AF (paroxysmal atrial fibrillation) (HCC) from Last 3 Months Immunizations Immunization Administration Dates Next Due Influenza, [...] (HCC) Arrhythmia Cancer (HCC) Sleep apnea has unit secretary but does not use Coronary artery disease Hyperlipidemia A-fib (HCC) Atrial flutter (HCC) Breast cancer (HCC) Left breast lumpectomy, chemo and radiation Cataract 10/09/2018 GERD (gastroesophageal reflux disease) Heart disease 1997 Family History Medical History Relation Name Comments Early Brother 2 Ilya Perry Hypertension Brother 2 Ilya Perry Hypertension; Cancer Father Siddhartha Taveras Heart attack Father Siddhartha Taveras Myocardial Infarction; Cause of : Myocardial Infarction Cancer Maternal Grandmother Zeina Taveras Breast cancer Mother Meagan Taveras Cancer, breast; Cause of : Cancer, breast Cancer Mother Meagan Taveras Diabetes Sister 2 Heather Tucker Early Sister 2 Heather Tucker Hypertension Sister [...] on file 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 Gender Identity Female 08/12/2023 5:10 PM CDT Sexual Orientation Straight 08/12/2023 5: 10 PM CDT Obstetrics History Last Filed Vital Signs Vital Sign Reading Time Taken Comments Blood Pressure 122/68 09/12/2024 9:18 AM CDT Pulse 95 09/12/2024 9:18 AM CDT Temperature 36.8 C (98.3 F) 02/23/2018 3:14 PM CDT Respiratory Rate 20 02/16/2018 8:00 AM CDT Oxygen Saturation 93% 09/12/2024 9:18 AM CDT Inhaled Oxygen Concentration - - Weight 77.1 kg (170 lb) 09/12/2024 9:18 AM CDT Height 157.5 cm (5' 2 ) 09/12/2024 9:18 AM CDT Body Mass Index 31.09 09/12/2024 9:18 AM CDT Plan of Treatment Health Maintenance Due Date Last Done Comments Breast Cancer Screening-Mammogram 1955 Colon Cancer Screening-Colonoscopy 1955 Depression Screening 1955 Fall Risk Assessment 1955 Hepatitis C Screening 1955 Osteoporosis Screening-Bone Density Scan 1955 Hepatitis B Screening 1975 Zoster Vaccine (1 of 2) 2007 Pneumococcal vaccine 65+ (2 of 2 - PCV) 01/17/2010 01/17/2009 Well Visit 65+ 2022 Influenza Vaccine (Season Ended) 2025 03/02/2018, 01/19/2017, 01/21/2016, Additional history exists DTaP/Tdap/Td Vaccine (2 - Td or Tdap) 01/20/2026 01/21/2016 Medical Devices Implanted Type Area Security Officer Supervisor Device Identifier Shelf Expiration Date Model / Serial / Lot System Online Community Manager Reveal Linq Insertable Automatically Activate - [id number] - [id number] Implanted:Qty: 1 on 10/13/2017 by Aravind Donahue MD at [facility] Implantable Loop Recorder Left: Chest Wall Medtronic Cardiac Rhythm Mgmt LNQ11 08/05/2018 LINQSYS / [id number] S / D Description:MYCARELINK PATIE NT MONITOR SN:[id number] Insurance [facility] MEDICARE [facility] MEDICARE Advance Directives For more information, please contact: [phone] * Full Code (Latest Code Status on File) Date Activated Date Inactivated Comments 02/15/2018 4:32 PM 02/16/2018 1:18 PM Care Teams Property Portfolio Officer Relationship Specialty Start Date End Date Rmoelia Tony MD PCP - General Family Medicine 05/02/21
--- OUTSIDE RECORDS SUMMARY | 2024-09-15 14:07 | XMS_ITS | Clinical Summary ---
Author Organization [facility] Radha Huertas Address [address] [place] [address] Care Team Providers Care Vice Investigator Name Role Phone Unavailable Primary Care Provider Unavailabl e Allergies No known active allergies Medications aspirin (ECOTRIN EC) 81 mg Tablet, Delayed Release (E.C.) Take 81 mg by mouth daily. Active atorvastatin (LIPITOR) 40 mg tablet Take 40 mg by mouth daily. 5 Active cholecalciferol , vitamin D3, 1,000 unit Take 2,000 Units by mouth daily. Active clopidogreL (PLAVIX) 75 mg Tablet Take 75 mg by mouth daily. 4 Active cyanocobalamin 1,000 mcg Tablet Take 1,000 mcg by mouth daily. Active Jardiance 25 mg tablet Take 1 Tablet by mouth daily. 5 Active calcium carb-vitamin D3-vit K2 600 mg-1,000 unit-90 mcg Tablet Take 600 mg by mouth daily. Active Linzess 72 mcg Capsule capsule Take 72 mcg by mouth daily. Active lisinopriL (PRINIVIL) 40 mg tablet Take 40 mg by mouth daily. Active pantoprazole (PROTONIX) 40 mg Tablet, Delayed Release (E.C.) Take 1 Tablet by mouth 2 times daily. 5 Active metoprolol tartrate (LOPRESSOR) 50 mg tablet Take 50 mg by mouth 2 times daily. 4 Active insulin degludec (Tresiba FlexTouch U-100) 100 unit/mL pen syringe Inject by subcutaneous injection. Active Active Problems No known active problems Encounters Date Type Department Care Team Description 09/15/2024 1:30 PM CDT Office Visit [facility] Oncology and Hematology - [place] [address] [place] [address] Min Davis MD Chronic anemia (Primary Dx) from Last 3 Months Family History Medical History Relation Name Comments Diabetes Brother Heart Disease Brother No Known Problems Child 1 Diabetes Child 2 Heart Disease Child 2 Colon Cancer Father Heart Disease Father Lung Cancer Mother Diabetes Sister Heart Disease Sister Relation Name Status Comments Brother Alive Child 1 Alive Child 2 Alive Father Mother Sister Alive Social History Tobacco Use Types Packs/Day Years Used Date Smoking Tobacco: Former Cigarettes 1.5 25 0 05/11/1971 - 05/11/1996 Smokeless Tobacco: Never Tobacco Cessation:Counseling Given: Not Answered Alcohol Use Standard Drinks/Week Comments Yes 0 (1 standard drink = 0.6 oz pur e alcohol) occasional Comments Unknown Sex and Gender Information Value Date Recorded Sex Assigned at Not on file Legal Sex Female 9:58 PM CDT Gender Identity Not on file Sexual Orientation Not on file Last Filed Vital Signs Vital Sign Reading Time Taken Comments Blood Pressure 132/71 09/15/2024 1:34 PM CDT Pulse 64 09/15/2024 1:32 PM CDT Temperature 37 C (98.6 F) 09/15/2024 1:32 PM CDT Respiratory Rate 16 09/15/2024 1:32 PM CDT Oxygen Saturation 97% 09/15/2024 1:32 PM CDT Inhaled Oxygen Concentration - - Weight 77.8 kg (171 lb 9.6 oz) 09/15/2024 1:32 P M CDT Height 157.5 cm (5' 2 ) 09/15/2024 1:32 PM CDT Body Mass Index 31.39 09/15/2024 1:32 PM CDT Plan of Treatment Upcoming Encounters Date Type Department Care Team (Late st Contact Info) Description 09/29/2024 4:30 PM CDT Telephone Check Up [facility] Oncology and Hematology - [place] [address] [place] [address] Min Davis MD [address] [facility] [address] [place] [address] Health Maintenance Due Date Last [...] OSTEOPOROSIS SCREENING 2022 INFLUENZA VACCINE (#1) 2023 [place] Prev entative Visit/Annual Wellness Visit 05/11/2024 RSV VACCINE (60+ or ) (1 - 1-dose 75+ series) 2032 Insurance AETNA O [facility]
--- OUTSIDE RECORDS SUMMARY | 2024-09-15 14:07 | XMS_ITS | Referral Summary ---
Author Organization [facility] Address [address] [place] [address] Care Team Providers Care Marker Shipments Name Role Phone Romelia Tony MD Primary Care Provider Encounters Date Type Department Care Team Description 09/12/2024 9:30 AM CDT Office Visit [facility] Medical Group Cardiology at [address] [place] [address] Toney Fontana MD Coronary artery disease of [place] artery of [place] heart with stable angina pectoris (Primary Dx); Status post coronary artery stent placement; Status post coronary artery bypass grafting; AF (paroxysmal atrial fibrillation) (HCC) from Last 3 Months Allergies No known active allergies Medications pantoprazole [...] (02/03/2018): Added automatically from request for surgery [id number] Malignant neoplasm of right female breast 2017 Status post placement of implantable loop record er 10/13/2017 Overview (10/30/2017): Medtronic LNQ11 ILR implanted on 10/13/17 for suspected Afib. 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 Gender Identity Female 08/12/2023 5:10 PM CDT [...] 09/12/2024 9:18 AM CDT Plan of Treatment Not on file Medical Devices Implanted Type Area Market Risk Analyst Device Identifier Shelf Expiration Date Model / Serial / Lot System Coupling Machine Operator Reveal Linq Insertable Automatically Activate - [id number] - [id number] Implanted:Qty: 1 on 10/13/2017 by Aravind Donahue MD at [facility] Implantable Loop Recorder Left: Chest Wall Medtronic Cardiac Rhythm Mgmt LNQ11 08/05/2018 LINQSYS / [id number] S / D Description:MYCARELINK PATIE NT MONITOR SN:[id number] Insurance AET MEDICARE [facility] MEDICARE Advance Directives For more information, please contact: [phone] * Full Code (Latest Code Status on File) Date Activated Date Inactivated Comments 02/15/2018 4:32 PM 02/16/2018 1:18 PM Care Teams Marker Shipments Relationship Specialty Start Date End Date Romelia Tnoy MD PCP - General Family Medicine 05/02/21
--- OUTSIDE RECORDS SUMMARY | 2024-09-15 14:07 | XMS_ITS | Encounter Summary ---
Author Organization [facility] Address [address] [facility] [address] [place] [address] Care Team Providers Care Environmental Field Professional Name Role Phone Trevor Persaud MD Primary Care Provider [phone] Trevor Persaud MD Primary Care Provider [phone] Anabel Hassan MD Primary Care Provider [phone] Romelia Tony MD Primary Care Provider [phone] Encounter Details Date Type Department Care Team (Late st Contact Info) Description 06/27/2016 Orders Only [facility] ProviderSulma MD [address] [place] [address] Social History Tobacco Use Types Packs/Day Years Used Date Smoking Tobacco: Former Cigarettes Q uit: 05/11/1996 Alcohol Use Standard Drinks/Week Comments Yes 0 (1 standard drink = 0.6 oz pur e alcohol) Comments Unknown Sex and Gender Information Value Date Recorded Sex Assigned at Not on file 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 us Historical Provider MD [facility] KO Final Result documented in this encounter Visit Diagnoses Not on filedocumented in this encounter Care Teams Environmental Field Professional Relationship Specialty Start Date End Date Trevor Persaud MD [address] [place] [address] PCP - General 08/08/16 12/22/17 Trevor Persaud MD [address] [place] [address] PCP - General 04/30/16 08/07/16 Anabel Hassan MD [address] [place] [id number] PCP - General Family Practice 12/23/17 05/01/21 Romelia Tony [place] [place] [address] PCP - General Family Medicine 05/02/21 documented as of this encounter
--- OUTSIDE RECORDS SUMMARY | 2024-09-15 14:07 | XMS_ITS | Continuity of Care Document ---
Author Organization [facility] Address [address] [place] [address] [place] [address] Phone Care Team Providers Care Clothes Presser Name Role Phone Chriss Nunez DO Unavailable Unavailable Advance Directives Directive Yes / No Effective Date File Name No Information Encounters Encounter Description Practice Location Reason(s) For Visit Diagnoses Date Provider Providers Copied on Encounter [facility], [address] [place] [address] [address], [place], [place], [id number], tel:[phone] [facility] [place][note 2] No Information Enrique Crockett. [address] [facility], [place], [address], [place]. tel: [phone] Family History Family Member Type Diagnosis Age At Onset No Information Payers Payer name Insurance type Covered democrat ID Authoriza tioswald(s) [facility] [id number] Social History Type Description Quantity Date Captured [...]
--- OUTSIDE RECORDS SUMMARY | 2024-09-15 14:07 | XMS_ITS ---
Author Organization [facility] Address [address] [place] [address] Care Team Providers Care Tinner Automatic Name Role Phone Romelia Tony MD Primary Care Provider [phone] Active Problems Problem Noted Date Diagnosed Date Paroxysmal atrial fibrillation 02/03/2018 Overview (02/03/2018): Added automatically from request for surgery [id number] Malignant neoplasm of right female breast 2017 [...]
--- OUTSIDE RECORDS SUMMARY | 2024-09-15 14:07 | XMS_ITS | Encounter Summary ---
Author Organization [facility] TONI Raymond [facility] Address [address] [place] [address] Care Team Providers Care Video Engineer Name Role Phone Unavailable Primary Care Provider Unavailabl e Encounter Details Date Type Department Care Team (Late st Contact Info) Description 09/15/2024 1:30 PM CDT Office Visit [facility] Oncology and Hematology - [place] [address] [facility] [address] [place] [address] Min Davis MD [address] [facility] [address] [place] [address] Chronic anemia (Primary Dx) Social History Tobacco Use Types Packs/Day Years [...] on file Sexual Orientation Not on file documented as of this encounter Last Filed Vital Signs Vital Sign Reading [...] Mass Index 31.39 09/15/2024 1:32 PM CDT documented in this encounter Plan of Treatment Upcoming Encounters Date Type Department Care Team (Late st Contact Info) Description 09/29/2024 4:30 PM CDT Telephone Check Up [facility] Oncology and Hematology - [address] [facility] [address] [place] [address] Min Davis MD [address] [facility] [address] [place] [address] Scheduled Orders Name Type Priority Associated Diagnoses Orde r Schedule CBC WITH DIFFERENTIAL Lab Stat Chronic anemia Expected: 09/15/2024, Expires: 09/15/2025 COMPREHENSIVE METABOLIC PANEL Lab Stat Chronic anemia Expected: 09/15/2024, Expires: 09/15/2025 FERRITIN Lab Routine Chronic anemia Expected: 09/15/2024, Expires: 09/15/2025 IRON, TIBC, AND PERCENT SATURATION Lab Routine Chronic anemia Expected: 09/15/2024, Expires: 09/15/2025 TRANSFERRIN RECEPTOR TFR SOLUBLE Lab Routine Chronic anemia Expected: 09/15/2024, Expires: 09/15/2025 VITAMIN B12 LEVEL Lab Routine Chronic anemia Expected: 09/15/2024, Expires: 09/15/2025 documented as of this encounter Visit Diagnoses Diagnosis Chronic anemia- Primary Anemia, unspecified documented in this encounter
[2024-09-15 14:29] LABS: Basophils Absolute Auto 0.1 K/mm3 (0.0-0.1); Eosinophils Absolute Auto 0.2 K/mm3 (0-0.3); Eosinophils Percent Auto 1.7 % (0-4.4); Hematocrit 45.7 % (37.0-47.0); Hemoglobin 13.5 g/dL (12.0-15.0); Immature Granulocyte Absolute 0.04 K/mm3 (0.00-0.031); Immature Granulocyte Percent A 0.4 % (0-0.5); Immature Platelet Fraction Pct 17.6 % (0.9-11.2); Lymphocytes Absolute Auto 2.38 K/mm3 (0.9-3.2); Lymphocytes Percent Auto 23.5 % (18.3-44.2); Mean Corpuscular HGB Conc 29.5 g/dl (32-36); Mean Corpuscular Hemoglobin 26.3 pg (26-34); Mean Corpuscular Volume 89.1 fl (80-100); Mean Platelet Volume 13.8 fl (7.4-10.4); Monocytes Absolute Auto 0.9 K/mm3 (0.1-0.6); Neutrophils Absolute Auto 6.5 K/mm3 (1.3-6.7); Neutrophils Percent Auto 64.4 % (45.5-73.1); Platelet Count Result 193 k/mm3 (150-375); Red Blood Count 5.13 M/mm3 (4.2-5.4); Red Cell Distribution Width 14.8 % (11.5-14.5); White Blood Count 10.1 K/mm3 (4.5-10.0)
[2024-09-15 14:32] LABS: Platelet Estimate Adequate (Adequate); Schistocytes None Seen
[2024-09-15 14:35] LABS: Anisocytosis 1+; Hypochromasia 1+; Ovalocytes 1+
[2024-09-15 17:12] LABS: Iron 65 ug/dL (37-170)
[2024-09-15 17:21] LABS: Percent Iron Saturation 15 % (20-50)
[2024-09-15 17:33] LABS: Alanine Aminotransferase 21 U/L (6-35); Albumin Level 4.7 g/dL (3.5-5.1); Alkaline Phosphatase 107 U/L (38-126); Anion Gap 12 mmol/L (4-12); Aspartate Amino Transferase 27 U/L (14-36); Bilirubin,Total 0.5 mg/dL (0.2-1.3); Blood Urea Nitrogen 29 mg/dL (7-17); Calcium 9.5 mg/dL (8.4-10.2); Carbon Dioxide 20 mmol/L (22-30); Chloride 109 mmol/L (98-107); Estimated Glomerular Filt Rate 58; Glucose 157 mg/dL (65-110); Sodium 141 mmol/L (137-145)
[2024-09-15 17:48] LABS: Ferritin 9.76 ng/mL (11.1-264)
[2024-09-19 11:53] LABS: Soluble Transferrin Receptor 2.35 mg/L (0.76-1.76)
== END 2024-09-15 14:04 | disposition home or self-care (01) ==
LOC: ANHLAB 14:04
PROVIDERS: PCP Family Medicine; Visit Provider Internal Medicine Hematology & Oncology
DX: D64.9 Anemia, unspecified (principal)
CPT/HCPCS: 36415; 80053; 82607; 82728; 83540; 83550; 84238; 85025; 85055

== ENCOUNTER 2025-02-20 09:59 | Outpatient (CLI) | payer MEDICARE, SELFPAY ==
--- NOTE | ~2025-02-20 | MM_ITS ---
EXAMINATION: MM screening yunior BI w marie HISTORY: Screening TECHNIQUE: Craniocaudal and mediolateral oblique 3-D tomosynthesis images were obtained and synthetic 2-D images were generated. CAD analysis was submitted and interpreted. COMPARISON: 02/19/2024 BREAST PARENCHYMAL COMPOSITION: There are scattered areas of fibroglandular density. FINDINGS: There is no evidence of suspicious mass, calcification, or architectural distortion to suggest malignancy. There has been no suspicious interval change. IMPRESSION: 1. No mammographic evidence of malignancy. Recommend routine screening mammography in one year. BI-RADS Category 2: Benign finding(s) Reviewed, dictated and finalized at location Q. IMPRESSION: 1. No mammographic evidence of malignancy. Recommend routine screening mammogra phy in one year. BI-RADS Category 2: Benign finding(s)
--- OUTSIDE RECORDS SUMMARY | 2025-02-20 10:53 | XMS_ITS | Clinical Summary ---
Author Organization [facility] Radha Huertas Address [address] [place] [address] Care Team Providers Care Manager Media Relations Name Role Phone Unavailable Primary Care Provider [...] pen syringe Inject by subcutaneous injection. Active ondansetron (ZOFRAN ODT) 4 mg Tablet, Rapid Dissolve Take 1 Tablet (4 mg) by mouth every 6-8 hours as needed for Nausea/Emesis. Dissolve tablet on top of tongue, then swallow with saliva. 20 Tablet Active Active Problems No known active problems Encounters Date Type Department Care Team Description 01/24/2025 External Device Data STL ABSTRACTION Provider, Abstract 01/17/2025 External Device Data STL ABSTRACTION Provider, Abstract 12/14/2024 External Device Data STL ABSTRACTION Provider, Abstract 11/23/2024 External Device Data STL ABSTRACTION Provider, Abstract from Last 3 Months Family History Medical [...] P M CDT Height 157.5 cm (5' 2) 09/15/2024 1:32 PM CDT Body Mass Index 31.39 09/15/2024 1:32 PM CDT Plan of Treatment Upcoming Encounters Date Type Department Care Team (Late st Contact Info) Description 04/03/2025 10:15 AM DIRECTOR DIGITAL ANALYTICS Office Visit [facility] Oncology and Hematology [facility] [address] [place] [address] Min Davis MD [address] [facility] [address] [place] [address] Health Maintenance Due Date Last Done Comments Pre-Diabetes and Diabetes Screening 1955 DTAP/TDAP/TD VACCINES (1 - Tdap) 1976 PNEUMOCOCCAL VACCINE 50+ YEARS (1 of 2 - PCV) 03/28/19 76 BREAST CANCER SCREENING 1997 COLORECTAL SCREENING 2002 Colorectal Cancer Screening 2002 FIT-DNA Q 3 years 2002 FIT/FOBT Q 1 year 2002 Flex Sig/CT Colonography Q 5 years 2002 ZOSTER VACCINE (1 of 2) 2007 RSV VACCINE (60+ or ) (1 - Risk 60-74 years 1-dose series) 2017 OSTEOPOROSIS SCREENING 2022 INFLUENZA VACCINE (#1) 2024 Insurance AETNA PPO [facility]
--- OUTSIDE RECORDS SUMMARY | 2025-02-20 10:54 | XMS_ITS ---
Author Organization [facility] Address [address] [place] [address] Care Team Providers Care Transfer Professor Name Role Phone Romelia Tony MD Primary Care Provider Active Problems Problem Noted Date Diagnosed Date Paroxysmal atrial fibrillation 02/03/2018 Overview (02/03/2018): Added automatically from request for surgery [id number] Malignant neoplasm of right female breast 2017 [...] Radiation 51 mSv 0 mSv 51 mSv Fluoro Time 24.8 minutes 0 minutes 24.8 minutes Air kerma at the reference point (Ka,r) 185 mGy 0 mGy 185 mGy DAP 2,170 Gy-cm2 0 Gy-cm2 2,170 Gy-cm2
--- OUTSIDE RECORDS SUMMARY | 2025-02-20 10:54 | XMS_ITS | Clinical Summary ---
Author Organization [facility] Address [address] [place] [address] Care Team Providers Care Pillow Agent Name Role Phone Romelia Tony MD Primary Care Provider [phone] Allergies No known active allergies Medications pantoprazole DR (PROTONIX) 40 mg EC tablet take 1 tablet (40MG) by oral route every day 0 09/30/2012 Active aspirin 81 mg tablet Take 1 tablet (81 mg total) by mouth daily Active lisinopril (PRINIVIL,ZESTR IL) 40 mg tablet Take 1 tablet (40 mg total) by mouth daily Active calcium carbonate (CALCIUM 600 ORAL) Take 600 mg by mouth daily Active cholecalciferol (VITAMIN D-3) 25 mcg (1,000 unit) tablet Take 2 tablets (2,000 Units total) by mouth daily Active cyanocobalamin (Vitamin B-12) 1,000 mcg tabletIndicatio ns:Prevention of Vitamin B12 Deficiency Take 1 tablet (1,000 mcg total) by mouth daily Active Jardiance 10 mg tablet Take 1 tablet (10 mg total) by mouth daily Active Linzess 72 mcg capsule Take 1 capsule (72 mcg total) by mouth daily 12/30/2022 Active TRESIBA 100 unit/mL (3 mL) pen for injection Inject 0.2 mL (20 Units total) as directed daily Active metoprolol tartrate (LOPRESSOR) 50 mg immediate release tablet Take 1 tablet by mouth twice daily 180 tablet 3 03/14/2024 Active nitroglycerin (NITROSTAT) 0.[address] 1 tablet (0.4 mg total) under the tongue every 5 (five) minutes as needed for chest pain 25 tablet 09/12/2024 Active clopidogreL (PLAVIX) 75 mg tablet Take 1 tablet by mouth once daily 90 tablet 3 10/10/2024 Active atorvastatin (LIPITOR) 40 mg tablet Take 1 tablet by mouth once daily 90 tablet 12/05/2024 Active Active Problems Problem Noted Date Diagnosed Date Paroxysmal atrial fibrillation 02/03/2018 Overview (02/03/2018): Added automatically from request for surgery [id number] Malignant neoplasm of right female breast 2017 Status post placement of implantable loop record er 10/13/2017 Overview (10/30/2017): Medtronic [id number] ILR implanted on 10/13/17 for suspected Afib. 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 Manager Marketing Reveal Linq Insertable Automatically Activate - [id number] - [id number] Implanted:Qty: 1 on 10/13/2017 by Aravind Donahue MD at [facility] Implantable Loop Recorder Left: Chest Wall Medtronic Cardiac Rhythm Mgmt [id number] 08/05/2018 LINQSYS / [id number] S / D Description:MYCARELINK PATIE NT MONITOR SN:[id number] Insurance AET MEDICARE [facility] MEDICARE Address: [facility] [address] [place] [address] [employer] [facility] AETNA MEDICARE Advance Directives For more information, please contact: [phone] * Full Code (Latest Code Status on File) Date Activated Date Inactivated Comments 02/15/2018 4:32 PM 02/16/2018 1:18 PM Care Teams Pillow Agent Relationship Specialty Start Date End Date Romelia Tony MD PCP - General Family Medicine 05/02/21
--- OUTSIDE RECORDS SUMMARY | 2025-02-20 10:54 | XMS_ITS | Encounter Summary ---
Author Organization [facility] Address [address] [place] [address] Care Team Providers Care Semiconductor Packages Tester Name Role Phone Trevor Persaud MD Primary Care Provider [phone] Trevor Persaud MD Primary Care Provider [phone] Anabel Hassan MD Primary Care Provider [phone] Romelia Tony MD Primary Care Provider [phone] Encounter Details Date Type Department Care Team (Late st Contact Info) Description 06/27/2016 Orders Only [facility] ProviderSulma MD [address] [place] [address] Social History Tobacco Use Types Packs/Day Years Used Date Smoking Tobacco: Former Cigarettes Q uit: 05/11/1996 Alcohol Use Standard Drinks/Week Comments Yes 0 (1 standard drink = 0.6 oz pur e alcohol) Comments Unknown Sex and Gender Information Value Date Recorded Sex Assigned at Not on file 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
== END 2025-02-20 10:00 | disposition home or self-care (01) ==
LOC: ANHFOHIMG 10:02
PROVIDERS: PCP Family Medicine; Visit Provider Obstetrics & Gynecology Gynecology
DX: Z12.31 Encounter for screening mammogram for malignant neoplasm of breast (principal)
CPT/HCPCS: 77063; 77067

== ENCOUNTER 2025-04-03 09:45 | Outpatient (CLI) | payer MEDICARE, SELFPAY ==
[2025-04-03 10:08] LABS: Hematocrit 48.3 % (37.0-47.0); Hemoglobin 15.5 g/dL (12.0-15.0); Immature Granulocyte Percent A 0.6 % (0-0.5); Lymphocytes Absolute Auto 2.23 K/mm3 (0.9-3.2); Mean Corpuscular HGB Conc 32.1 g/dl (32-36); Mean Corpuscular Hemoglobin 28.5 pg (26-34); Mean Corpuscular Volume 88.8 fl (80-100); Nucleated Red Blood Cells Absolute Auto 0.000 K/mm3 (0.0-0.012); Nucleated Red Blood Cells Perc 0.0 % (0.0-0.2); Platelet Count Result 204 k/mm3 (150-375); Red Blood Count 5.44 M/mm3 (4.2-5.4); White Blood Count 9.7 K/mm3 (4.5-10.0)
--- OUTSIDE RECORDS SUMMARY | 2025-04-03 10:15 | XMS_ITS | Encounter Summary ---
Author Organization [facility] TONI Raymond [facility] Address [address] [place] [address] Care Team Providers Care Clinical Project Manager Name Role Phone Unavailable Primary Care Provider Unavailabl e Encounter Details Date Type Department Care Team (Late st Contact Info) Description 04/03/2025 10:15 AM MOBILE ARCHITECT Office Visit [facility] Oncology and Hematology - Flo [address] [facility] [address] [place] [address] Min Davis MD [address] [facility] [address] [place] [address] Chronic anemia (Primary Dx) Social [...] Sign Reading Time Taken Comments Blood Pressure 130/64 04/03/2025 10:12 AM MOBILE ARCHITECT Pulse 74 04/03/2025 10:12 AM MOBILE ARCHITECT Temperature 36.6 C (97.9 F) 04/03/2025 10:12 AM MOBILE ARCHITECT Respiratory Rate 15 04/03/2025 10:1 2 AM MOBILE ARCHITECT Oxygen Saturation 97% 04/03/2025 10: 12 AM MOBILE ARCHITECT Inhaled Oxygen Concentration - - Weight 77.5 kg (170 lb 12.8 oz) 025 10:12 AM MOBILE ARCHITECT Height - - Body Mass Index 31.24 09/15/2024 1:32 PM CDT documented in this encounter Plan of Treatment Upcoming Encounters Date Type Department Care Team (Late st Contact Info) Description 09/18/2025 11:30 AM CDT Office Visit [facility] Oncology and Hematology - Flo [address] [facility] [address] [place] [address] Min Davis MD [address] [facility] [address] [place] [address] Scheduled Orders Name Type Priority Associated Diagnoses Orde r Schedule CBC WITHOUT DIFFERENTIAL Lab Stat Chronic anemia Expected: 10/01/2025, Expires: 04/03/2026 FERRITIN Lab Routine Chronic anemia Expected: 10/01/2025, Expires: 04/03/2026 IRON, TIBC, AND PERCENT SATURATION Lab Routine Chronic anemia Expected: 10/01/2025, Expires: 04/03/2026 BASIC METABOLIC PANEL Lab Stat Chronic anemia Expected: 10/01/2025, Expires: 04/03/2026 documented as of this encounter Visit Diagnoses Diagnosis Chronic anemia- Primary Anemia, unspecified documented in this encounter
--- OUTSIDE RECORDS SUMMARY | 2025-04-03 11:03 | XMS_ITS | Clinical Summary ---
Author Organization [facility] Radha Huertas Address [address] [place] [address] Care Team Providers Care City Designer Name Role Phone Unavailable Primary Care Provider [...] then swallow with saliva. 20 Tablet Active tirzepatide (Mounjaro) 5 mg/0.5 mL Pen Injector Inject 5 mg by subcutaneous injection. Active Active Problems No known active problems Encounters Date Type Department Care Team Description 04/03/2025 10:15 AM OCCUPATIONAL THERAPY ASSIST Office Visit [facility] Oncology and Hematology - Flo [facility] [address] [place] [address] Min Davis MD Chronic anemia (Primary Dx) 2025 External Device Data STL ABSTRACTION Provider, Abstract 03/08/2025 External Device Data STL ABSTRACTION Provider, Abstract 03/01/2025 External Device Data STL ABSTRACTION Provider, Abstract 02/28/2025 External Device Data STL ABSTRACTION Provider, Abstract 01/24/2025 External Device Data STL ABSTRACTION Provider, [...] Comments Blood Pressure 130/64 04/03/2025 10:12 AM OCCUPATIONAL THERAPY ASSIST Pulse 74 04/03/2025 10:12 AM OCCUPATIONAL THERAPY ASSIST Temperature 36.6 C (97.9 F) 04/03/2025 10:12 AM OCCUPATIONAL THERAPY ASSIST Respiratory Rate 15 04/03/2025 10:1 2 AM OCCUPATIONAL THERAPY ASSIST Oxygen Saturation 97% 04/03/2025 10: 12 AM OCCUPATIONAL THERAPY ASSIST Inhaled Oxygen Concentration - - Weight 77.5 kg (170 lb 12.8 oz) 025 10:12 AM OCCUPATIONAL THERAPY ASSIST Height 157.5 cm (5' 2) 09/15/2024 1:32 PM CDT Body Mass Index 31.24 09/15/2024 1:32 PM CDT Plan of Treatment Upcoming Encounters Date Type Department Care Team (Late st Contact Info) Description 09/18/2025 11:30 AM CDT Office Visit [facility] Oncology and Hematology - Flo [address] [facility] [address] [place] [address] Min Davis MD [address] [facility] [address] [place] [address] Health Maintenance Due Date Last Done Comments Pre-Diabetes and Diabetes Screening 1957 DTAP/TDAP/TD VACCINES (1 - Tdap) 1976 PNEUMOCOCCAL VACCINE 50+ YEARS (1 of 2 - PCV) 03/28/19 76 BREAST CANCER SCREENING 1997 COLORECTAL SCREENING 2002 Colorectal Cancer Screening 2002 FIT-DNA Q 3 years 2002 FIT/FOBT Q 1 year 2002 Flex Sig/CT Colonography Q 5 years 2002 RSV VACCINE (60+ or ) (1 - Risk 50-74 years 1-dose series) 2007 ZOSTER VACCINE (1 of 2) 2007 OSTEOPOROSIS SCREENING 2022 [place] Prev entative Visit/Annual Wellness Visit 05/11/2024 INFLUENZA VACCINE (#1) 2024 Procedures Procedure Name Priority Date/Time Associated Diagnosis Comments IRON, TIBC, AND PERCENT SATURATION Routine 03/27/2025 12:28 PM OCCUPATIONAL THERAPY ASSIST Chronic anemia FERRITIN Routine 03/27/2025 12:28 PM OCCUPATIONAL THERAPY ASSIST Chronic anemia from Last 3 Months Results * IRON, TIBC, AND PERCENT SATURATION (03/27/2025 12:28 PM OCCUPATIONAL THERAPY ASSIST) IRON 62 45 - 160 mcg/dL [facility] TIBC 339 250 - 450 mcg/dL (calc) [facility] IRON % SATURATION 18 16 - 45 % (calc) [facility] Comment: Test Performed at: [facility] [address] [place] [address] Juliet Ronquillo MD Blood 03/27/2025 12:2 8 PM OCCUPATIONAL THERAPY ASSIST 03/27/2025 12:28 PM OCCUPATIONAL THERAPY ASSIST Min Davis MD CHEMISTRY ORDERABLES Final Resu lt [facility] [phone] [facility] [address] [place] [phone] * FERRITIN (03/27/2025 12:28 PM OCCUPATIONAL THERAPY ASSIST) FERRITIN 51 16 - 288 ng/mL [facility] Comment: Test Performed at: [facility] [address] [place] [address] Juliet Ronquillo MD Blood 03/27/2025 12:2 8 PM OCCUPATIONAL THERAPY ASSIST 03/27/2025 12:28 PM OCCUPATIONAL THERAPY ASSIST Min Davis MD CHEMISTRY ORDERABLES Final Resu lt [facility] [phone] [facility] [address] [place] [phone] from Last 3 Months Insurance [facility]
--- OUTSIDE RECORDS SUMMARY | 2025-04-03 11:03 | XMS_ITS | Clinical Summary ---
Author Organization [facility] Address [address] [place] [address] Care Team Providers Care Director Business Systems Name Role Phone Romelia Tony MD Primary Care Provider [phone] Allergies No known active allergies Medications pantoprazole [...] mcg total) by mouth daily 3 Active TRESIBA 100 unit/mL (3 mL) pen for injection Inject 0.2 mL (20 Units total) as directed daily Active nitroglycerin (NITROSTAT) 0.[address] 1 tablet (0.4 mg total) under the tongue every 5 (five) minutes as needed for chest pain 25 tablet 5 Active clopidogreL (PLAVIX) 75 mg tablet Take 1 tablet by mouth once daily 90 tablet 3 5 Active atorvastatin (LIPITOR) 40 mg tablet Take 1 tablet by mouth once daily 90 tablet 1 5 Active metoprolol tartrate (LOPRESSOR) 50 mg immediate release tablet Take 1 tablet by mouth twice daily 180 tablet 1 5 Active Mounjaro 5 mg/0.5 mL pen injector injection Inject 0.5 mL (5 mg total) under the skin once a week 5 Active metoprolol tartrate (LOPRESSOR) 50 mg immediate release tablet Take 1 tablet by mouth twice daily 180 tablet 3 4 025 Discontinued Active Problems Problem Noted Date Diagnosed Date Paroxysmal atrial fibrillation 02/03/2018 Overview (02/03/2018): Added automatically from request for surgery [id number] Malignant neoplasm of right female breast 2017 [...] Encounters Date Type Department Care Team Description 03/20/2025 1:15 PM HYDROELECTRIC PRODUCTION TECHNICIAN Office Visit [facility] Cardiology at [address] [place] [address] Toney Fontana MD Status post coronary artery stent placement (Primary Dx); Status post coronary artery bypass grafting; AF (paroxysmal atrial fibrillation); Lipid screening from Last 3 Months Immunizations Immunization Administration [...] mellitus Arrhythmia Cancer (HCC) Sleep apnea has economic development coordinator but does not use Coronary artery disease [...] Ilya Perry Father Siddhartha Taveras Maternal Grandmother Zenia Taveras Mother Meagan Taveras Sister 1 Alive [...] on file Legal Sex Female 6:56 PM HYDROELECTRIC PRODUCTION TECHNICIAN Gender Identity Female 08/12/2023 5:10 PM CDT Sexual Orientation Straight 08/12/2023 5: 10 PM CDT Last Filed Vital Signs Vital Sign Reading Time Taken Comments Blood Pressure 142/70 03/20/2025 1:15 PM HYDROELECTRIC PRODUCTION TECHNICIAN Pulse 89 03/20/2025 1:15 PM HYDROELECTRIC PRODUCTION TECHNICIAN Temperature 36.8 C (98.3 F) 02/23/2018 3:14 PM CDT Respiratory Rate 20 02/16/2018 8:00 AM CDT Oxygen Saturation 98% 03/20/2025 1:15 PM HYDROELECTRIC PRODUCTION TECHNICIAN Inhaled Oxygen Concentration - - Weight 78.9 kg (174 lb) 03/20/2025 1:15 PM HYDROELECTRIC PRODUCTION TECHNICIAN Height 157.5 cm (5' 2) 03/20/2025 1:15 PM HYDROELECTRIC PRODUCTION TECHNICIAN Body Mass Index 31.83 03/20/2025 1:15 PM HYDROELECTRIC PRODUCTION TECHNICIAN Plan of Treatment Health Maintenance Due Date Last Done Comments Breast Cancer Screening-Mammogram 1957 Colon Cancer Screening-Colonoscopy 1957 Depression Screening 1957 Fall Risk Assessment 1957 Hepatitis C Screening 1957 Osteoporosis Screening-Bone Density Scan 1957 Hepatitis B Screening 1975 Pneumococcal vaccine 65+ (2 of 2 - PCV) 01/17/2010 01/17/2009 Well Visit 65+ 2022 Influenza Vaccine (#1) 2025 2, 02/14/2021, 02/16/2020, Additional history exists DTaP/Tdap/Td Vaccine (2 - Td or Tdap) 01/20/2026 01/21/2016 Zoster Vaccine Completed 11/25/2019, 05/28/2019 Medical Devices Implanted Type Area Local Company Intermodal Truck Driver Device Identifier Shelf Expiration Date Model / Serial / Lot System Inspector Fabric Reveal Linq Insertable Automatically Activate - [id number] - [id number] Implanted:Qty: 1 on 10/13/2017 by Aravind Donahue MD at [facility] Implantable Loop Recorder Left: Chest Wall Medtronic Cardiac Rhythm Mgmt LNQ11 08/05/2018 LINQSYS / [id number] S / D Description:FADI MAY NT MONITOR SN:[id number] Procedures Procedure Name Priority Date/Time Associated Diagnosis Comments POCT LIPID PANEL Routine 03/20/2025 2:12 AM HYDROELECTRIC PRODUCTION TECHNICIAN Lipid screening from Last 3 Months Results * (ABNORMAL) POCT lipid panel (03/20/2025 2:12 AM HYDROELECTRIC PRODUCTION TECHNICIAN) Cholesterol, POC 152 <200 MG/DL HDL, POC 45 >=40 mg/dL Triglycerides, POC 168(A) <=149 mg/dL LDL Cholesterol POC 74 <=129 mg/dL Chol/HDL Ratio, POC 3.4 NONE Non-HDL Cholesterol, POC 108 NONE mg/dL Cholesterol Total, POC 152 30 - 199 mg/dL Capillary blood 03/20/2025 2 :12 AM HYDROELECTRIC PRODUCTION TECHNICIAN Toeny Fontana MD POINT OF CARE TEST ORDER JENA Final Result from Last 3 Months Insurance [facility] MEDICARE [employer] [facility] AETNA MEDICARE Advance Directives For more information, please contact: [phone] * Full Code (Latest Code Status on File) Date Activated Date Inactivated Comments 02/15/2018 4:32 PM 02/16/2018 1:18 PM Care Teams Director Business Systems Relationship Specialty Start Date End Date Romelia Tony MD PCP - General Family Medicine 05/02/21
--- OUTSIDE RECORDS SUMMARY | 2025-04-03 11:03 | XMS_ITS | Encounter Summary ---
Author Organization [facility] Address [address] [place] [address] Care Team Providers Care Reclamation Supervisor Name Role Phone Trevor Persaud MD Primary Care Provider [phone] Trevor Persaud MD Primary Care Provider [phone] Anabel Hassan MD Primary Care Provider [phone] Romelia Tony MD Primary Care Provider [phone] Encounter Details Date Type Department Care Team (Late st Contact Info) Description 06/27/2016 Orders Only [facility] ProviderSulma MD [address] [place] [address] Social History Tobacco Use Types Packs/Day Years Used Date Smoking Tobacco: Former Cigarettes Q uit: 05/11/1996 Alcohol Use Standard Drinks/Week Comments Yes 0 (1 standard drink = 0.6 oz pur e alcohol) Comments Unknown Sex and Gender Information Value Date Recorded Sex Assigned at Not on file Legal Sex Female 6:56 PM BUTTER MELTER Gender Identity Female 08/12/2023 5:10 PM CDT [...] on filedocumented in this encounter Care Teams Reclamation Supervisor Relationship Specialty Start Date End Date Trevor Persaud MD [address] [place] [address] PCP - General 08/08/16 12/22/17 Trevor Persaud MD [address] [place] [address] PCP - General 04/30/16 08/07/16 Anabel Hassan MD [address] [place] [address] PCP - General Family Practice 12/23/17 05/01/21 Romelia Tony MD [address] [place] [address] PCP - General Family Medicine 05/02/21 documented as of this encounter
--- OUTSIDE RECORDS SUMMARY | 2025-04-03 11:03 | XMS_ITS ---
Author Organization [facility] Address [address] [place] [address] Care Team Providers Care Field Cane Scaler Helper Name Role Phone Romelia Tony MD Primary Care Provider [phone] Active Problems Problem Noted Date Diagnosed Date Paroxysmal atrial fibrillation 02/03/2018 Overview (02/03/2018): Added automatically from request for surgery [id number] Malignant neoplasm of right female breast 2017 [...]
--- OUTSIDE RECORDS SUMMARY | 2025-04-03 11:03 | XMS_ITS | Encounter Summary ---
Author Organization [facility] Address [address] [place] [address] Care Team Providers Care Dairy Supplies Sales Representative Name Role Phone Romelia Tony MD Primary Care Provider [phone] Encounter Details Date Type Department Care Team (Late st Contact Info) Description 09/16/2021 Orders Only [facility] Information Management [address] [place] [address] Scanning, Provider Social History Tobacco Use Types Packs/Day Years Used Date Smoking Tobacco: Former Cigarettes Q uit: 05/21/1996 Smokeless Tobacco: Never Comments:1996 Alcohol Use Standard Drinks/Week Comments Yes 1 (1 standard drink = 0.6 oz pur e alcohol) very Little Comments Unknown Sex and Gender Information Value Date Recorded Sex Assigned at Not on file Legal Sex Female 6:56 PM FIELD RADIO OPERATOR Gender Identity Female 08/12/2023 5:10 PM CDT Sexual Orientation Straight 08/12/2023 5: 10 PM CDT documented as of this encounter Plan of Treatment Not on file documented as of this encounter Procedures Procedure Name Priority Date/Time Associated Diagnosis Comments SCAN - LABS 09/16/2021 9:28 PM CDT documented in this encounter Results * SCAN - LABS (09/16/2021 9:28 PM CDT) us Provider Scanning Final Result documented in this encounter Visit Diagnoses Not on filedocumented in this encounter Care Teams Dairy Supplies Sales Representative Relationship Specialty Start Date End Date Romelia Tony MD PCP - General Family Medicine 05/02/21 documented as of this encounter
== END 2025-04-03 09:46 | disposition home or self-care (01) ==
LOC: ANHLAB 09:45
PROVIDERS: PCP Family Medicine; Visit Provider Internal Medicine Hematology & Oncology
DX: D64.9 Anemia, unspecified (principal)
CPT/HCPCS: 36415; 85025

== ENCOUNTER 2025-05-02 08:06 | Emergency (ER) | payer MEDICARE, SELFPAY ==
--- NOTE | ~2025-05-02 | XR_ITS ---
Examination: XR chest 2V Clinical History: cough x2 wks. Crackles bilat bases, no chest pain, no sob Comparison: 09/11/2021 Technique: PA and Lateral Findings: Loop recorder. Cardiomediastinal silhouette normal size and configuration. Increased interstitial markings around left hilum felt due to posttreatment changes. Lungs otherwise clear. No acute bony abnormality. IMPRESSION: 1. No definite acute cardiopulmonary findings. Reviewed, dictated and finalized at location [facility]. [facility]
[2025-05-02 08:15] VITALS: BP 157/75; PULSE 77; RESP 16; TEMP 36.1; O2SAT 99
--- NOTE | 2025-05-02 08:23 | ED.URI ---
HPI - URI/Sore Throat General Chief Complaint: Upper Respiratory Infection Stated Complaint: COUGH/COLD Time Seen by Provider: 05/02/25 08:18 Source: patient and RN notes reviewed Mode of arrival: ambulatory Limitations: no limitations History of Present Illness HPI Narrative: 70-year-old female patient with history of insulin-dependent diabetes, CAD presents today with a 2 week history of cough and nasal congestion. States cough was productive last week but is now nonproductive. Denies shortness of breath or fever. She has been taking some NyQuil with some improvement. Related Data Home Medications ?Medication ?Instructions ?Recorded ?Confirmed ?Last Taken ?Type metoprolol tartrate 50 mg tablet 50 mg PO Q12H 05/06/19 04/17/25 07/07/24 09:00 History calcium carbonate (Calcium 600) 600 mg PO DAILY 06/30/20 04/17/25 07/06/24 History cholecalciferol (vitamin D3) 25 50 mcg PO DAILY 06/30/20 04/17/25 07/06/24 History mcg (1,000 unit) tablet (Vitamin D3) atorvastatin 40 mg tablet 40 mg PO DAILY 09/12/24 04/17/25 Unknown History vitamin B12 500 mcg-folic acid 400 1 tablet PO DAILY 09/12/24 04/17/25 Unknown History mcg tablet linaclotide 72 mcg capsule See Rx Instructions .Route .prn 09/22/24 04/17/25 Unknown History (Linzess) Allergies Allergy/AdvReac Type Severity Reaction Status Date / Time No Known Allergies Allergy Verified 05/02/25 08:12 [facility] Past Medical History Medical History Gas bloat syndrome Abdominal bloating Peripheral neuropathy Vitamin D deficiency Mild asthma Low TSH level Injury of head Hypoxemia GERD without esophagitis Essential pulmonary hypertension CAD, multiple vessel Body mass index (BMI) 35 or more (10/25/18) Benign hypertension Atrial fibrillation and flutter Cataract bilateral Coronary stent restenosis Chronic anticoagulation Hypercalcemia DVT prophylaxis Type 2 diabetes mellitus with hyperglycemia, with long-term current use of insulin Osteopenia High cholesterol MELANIE (obstructive sleep apnea) Compliant with CPAP most evenings. Breast cancer Status post lumpectomy with chemotherapy and radiation. She has yearly mammograms now. Atrial flutter Surgical History Surgical History History of open heart surgery 2012 multiple heart surgeries History of heart artery stent 09/2021 History of foot surgery History of carpal tunnel surgery History of shoulder surgery History of knee surgery Hx of CABG History of cholecystectomy History of hip surgery Dr. Lee History of 1978 and 1981 History of lumpectomy of left breast History of loop recorder Hx of CABG Family History Family History Sibling Diabetes mellitus Family history of coronary artery disease Family history of premature coronary heart disease Father Carcinoma of colon Family history of smoking Mother Family history of lung cancer Family history of smoking Other Family history of cardiovascular disease Family history of glaucoma Family history of obesity Heart disease High cholesterol Hypertension Social History Social History Social History: Patient smoked 1.5 pack per day times 20 years but quit 1996. She rarely drinks alcohol. No drug use. No history of drug use. She lives with her . She has 2 grown children. No pets. She is a full code. She nominates her to be the 1 to make medical decisions for her if she is unable. Smoking packs per day: 1.5 Smoking cigarettes per day: 30.0 Years smoked: 23 Smoking pack-years: 34.50 Smoking status: Former smoker (quit 1996) Tobacco type: cigarettes Smoking end date: 05/11/96 Alcohol intake: current Alcohol use details: very rare Substance use: never Lack of Transportation: No Lack of Food: Never True Current Housing: I Have Housing Concerned About Future Housing: No Difficulty Paying Gas/Electric Bills: No Difficulty Paying for Meds: No Currently Unemployed: No Education: High School Diploma/GED Difficulty w/ Childcare or Family Care: No Living arrangements: with family Additional living arrangements comments: With sp Gender identity (if verbalized by the patient): Female Spiritual care concerns: No Comments At time of signature, I have reviewed and agree with nursing past medical, surgical, social and family history unless otherwise noted. Please see nursing chart for further information. There is no relevant family history pertinent to the presenting complaint Exam Narrative: GENERAL: Mildly ill-appearing, well-nourished, and in no acute distress. HEAD: Normocephalic, atraumatic. EYES: EOMI. No redness or drainage. Conjunctivae normal. ENT: Mucous membranes pink and moist. Nares clear. + rhinorrhea. TMs normal bilaterally. Throat normal. Uvula midline. NECK: Normal AROM. Supple. No lymphadenopathy. CHEST: No respiratory distress. Slight expiratory wheeze in the right upper lobe. Fine crackles in the bilateral lower lobes. HEART: Regular rate and rhythm. No murmur appreciated. EXTREMITIES: Normal range of motion. No edema. SKIN: Warm, dry, no rash. Capillary refill normal. Normal skin turgor. NEURO: No focal deficits. Alert and oriented x3. Gait steady. PSYCH: Normal affect. No signs of depression or anxiety. Course Course Level of Care: Express Care Visit Vital Signs Vital signs: Vital Signs Oxygen Delivery Room Air 05/02/25 08:12 Temperature 97 F L 05/02/25 08:15 Pulse Rate 77 05/02/25 08:15 Respiratory Rate 16 05/02/25 08:15 Blood Pressure 157/75 H 05/02/25 08:15 Pulse Oximetry 99 05/02/25 08:15 Oxygen Delivery Room Air 05/02/25 08:12 Reviewed MDM MDM Narrative Medical decision making narrative: 70-year-old female patient with history of insulin-dependent diabetes, CAD presents today with a 2 week history of cough and nasal congestion. States cough was productive last week but is now nonproductive. Denies shortness of breath or fever. She has been taking some NyQuil with some improvement. Upon exam, patient is mildly ill appearing with harsh cough and rhinorrhea. Slight expiratory wheeze in the right lower lobe and fine crackles in the bilateral lower lobes. Chest x-ray negative. Due to the duration of patient's illness, persistence of her cough, and history of diabetes, will treat her with course of Augmentin, prednisone, and some Tessalon Perles which she requested. Patient agrees with plan. Vital signs stable. Anticipatory guidance given. ED precautions given. Differential Diagnosis Differential Diagnosis: Pneumonia, URI, bronchitis Imaging Data Radiologist's impression: ITS Impressions Chest X-Ray 05/02/25 08:42 IMPRESSION: 1. No definite acute cardiopulmonary findings. Critical Care Time Critical Care Time Critical Care Time: No Discharge Plan Discharge Clinical Impression: Acute lower respiratory infection Patient Disposition: Home Condition: Stable Instructions: Acute Bronchitis (ED) Additional Instructions: Please take all medications as prescribed. Follow-up with your PCP in 3 days if symptoms are not improving. As discussed, please go to the ER immediately if symptoms worsen to include development of new fever greater than 100.3, shortness of breath, chest pain. Patient Language: Maori Prescriptions: New benzonatate 200 mg capsule 200 mg PO TID PRN (Reason: cough) Qty: 30 0RF amoxicillin-pot clavulanate 875-125 mg tablet 1 tablet PO Q12H 7 Days Qty: 14 0RF prednisone 20 mg tablet 40 mg PO DAILY 5 Days Qty: 10 0RF No Action calcium carbonate [Calcium 600] 600 mg calcium (1,500 mg) Tablet 600 mg PO DAILY cholecalciferol (vitamin D3) [Vitamin D3] 25 mcg (1,000 unit) Tablet 50 mcg PO DAILY atorvastatin 40 mg tablet 40 mg PO DAILY Linzess 72 mcg capsule See Rx Instructions .ROUTE .prn Dose Instruction: Take 1 capsule by mouth once daily Rx Instructions: Take 1 capsule by mouth once daily PRN; vitamin P21-tqdgi acid 500-400 mcg tablet 1 tablet PO DAILY Rx Instructions: administer with a meal metoprolol tartrate 50 mg tablet 50 mg PO Q12H (DME) pen needle, diabetic [BD Felicia 2nd Gen Pen Needle] 32 gauge x 5/32 needle See Rx Instructions .ROUTE .MEDSUPPLY Qty: 100 11RF Rx Instructions: As directed glucose [Dex4 Glucose] 4 gram tablet,chewable 16 g PO Q15M PRN (Reason: hypoglycemia) Qty: 60 1RF Rx Instructions: until symptoms of low blood sugar are controlled Mounjaro 7.5 mg/0.5 mL pen injector 7.5 mg subcut WEEKLY Qty: 6 1RF clopidogrel 75 mg Tablet 75 mg PO DAILY 30 Days Qty: 30 5RF aspirin [Adult Low Dose Aspirin] 81 mg tablet,delayed release (DR/EC) 81 mg PO DAILY 30 Days Qty: 30 5RF insulin degludec [Tresiba FlexTouch U-100] 100 unit/mL (3 mL) insulin pen 16 unit subcut QHS Qty: 15 1RF Jardiance 25 mg tablet 25 mg PO DAILY Qty: 90 1RF pantoprazole 40 mg tablet,delayed release (DR/EC) 40 mg PO BID Qty: 90 3RF Sutab 1.479-0.188- 0.225 gram tablet See Rx Instructions PO PER PKG DIR Qty: 24 0RF Rx Instructions: PO PER PKG DIR lisinopril 40 mg tablet See Rx Instructions .ROUTE .COMPLEX Qty: 90 0RF Dose Instruction: Take 1 tablet by mouth once daily Rx Instructions: Take 1 tablet by mouth once daily Follow-up/Referrals: Chavo,MD Romelia [Primary Care Provider, Family Practice] Time of Disposition: 08:58
== END 2025-05-02 09:00 | disposition home or self-care (01) ==
PROVIDERS: Emergency Provider Nurse Practitioner; PCP Family Medicine
DX: J22 Unspecified acute lower respiratory infection (principal); E11.42 Type 2 diabetes mellitus with diabetic polyneuropathy; Z79.4 Long term (current) use of insulin; Z79.84 Long term (current) use of oral hypoglycemic drugs; Z79.85 Long-term (current) use of injectable non-insulin antidiabetic drugs; I10 Essential (primary) hypertension; I25.10 Atherosclerotic heart disease of native coronary artery without angina pectoris; I48.91 Unspecified atrial fibrillation; K21.9 Gastro-esophageal reflux disease without esophagitis; M85.80 Other specified disorders of bone density and structure, unspecified site; E78.00 Pure hypercholesterolemia, unspecified; G47.33 Obstructive sleep apnea (adult) (pediatric); J45.909 Unspecified asthma, uncomplicated; Z85.3 Personal history of malignant neoplasm of breast; Z95.5 Presence of coronary angioplasty implant and graft; Z90.12 Acquired absence of left breast and nipple; Z92.21 Personal history of antineoplastic chemotherapy; Z92.3 Personal history of irradiation; Z79.82 Long term (current) use of aspirin
CPT/HCPCS: 71046; 99213; G0463